=== PATIENT | female | born 1935 | race Caucasian/White ===

== ENCOUNTER → 2018-01-04 19:30 | Outpatient (REF) | payer MEDICARE, SELFPAY | LOC: LAB 19:30 | PROVIDERS: Visit Provider Internal Medicine Adolescent Medicine | DX: N39.0 Urinary tract infection, site not specified (principal) ==

== ENCOUNTER → 2018-01-06 08:50 | Outpatient (REF) | payer MEDICARE, MEDICAID, SELFPAY ==
[2018-01-06 09:11] LABS: Microscopic, Urine URINE MICROSCOPIC (MICROSCOPIC)
[2018-01-06 10:06] LABS: Appearance,Urine SL CLOUDY (Clear); Bilirubin,Urine Negative (Negative); Blood, Urine 2+ (Negative); Color,Urine YELLOW (Yellow); Glucose,Urine (UA) Negative (Negative); Ketones,Urine Negative (Negative); Leukocyte Esterase,Urine TRACE (Negative); Nitrate,Urine Negative (Negative); PH,Urine 6.5 (5.0-8.5); Protein,Urine TRACE (Negative); Urobilinogen,Urine 0.2 EU/dl (0.2)
[2018-01-06 10:15] LABS: Bacteria,Urine 2+ /lpf; Mucus,Urine Trace /lpf; Squamous Epithelial Cell,Urine Occasional #/hpf (0-5); WBC,Urine 20-50 #/hpf (0-3)
== END ==
LOC: LAB 08:50
PROVIDERS: Visit Provider Nurse Practitioner Family
DX: N39.0 Urinary tract infection, site not specified (principal)
CPT/HCPCS: 81001; 87086

== ENCOUNTER 2018-03-15 02:33 | Inpatient (IN) ==
[2018-03-15 03:08] LABS: Basophils % 0.3 % (0.1-2.0); Eosinophils # 0.1 K/mm3 (0.0-0.4); Eosinophils % 1.4 % (0.1-12.0); Hematocrit 34.3 % (37.0-47.0); Hemoglobin 12.7 g/dL (12.2-16.2); Lymphocytes # 0.3 K/mm3 (0.7-4.5); Lymphocytes % 6.8 K/mm3 (10-50); Mean Corpuscular HGB Conc 36.9 g/dL (31.8-35.4); Mean Corpuscular Hemoglobin 34.4 pg (27.0-31.2); Mean Corpuscular Volume 93.1 fl (81-99); Mean Platelet Volume 6.9 fl (7.4-10.4); Monocytes # 0.1 K/mm3 (0.1-1.0); Monocytes % 1.7 % (1.7-9.3); Neutrophils # 4.1 K/mm3 (1.8-7.8); Neutrophils % 89.8 % (37.0-80.0); Platelet Count 297 K/mm3 (142-424); Red Blood Count 3.68 M/mm3 (4.20-5.40); Red Cell Distribution Width 12.8 % (11.5-17.5); White Blood Count 4.6 K/mm3 (4.8-10.8)
[2018-03-15 03:09] LABS: Microscopic, Urine URINE MICROSCOPIC (MICROSCOPIC)
[2018-03-15 03:11] LABS: Appearance,Urine CLEAR (Clear); Bilirubin,Urine Negative (Negative); Blood, Urine 3+ (Negative); Color,Urine YELLOW (Yellow); Glucose,Urine (UA) Negative (Negative); Ketones,Urine Negative (Negative); Leukocyte Esterase,Urine 2+ (Negative); Protein,Urine Negative (Negative); Specific Gravity, Urine <= 1.005 (1.005-1.030); Urobilinogen,Urine 0.2 EU/dl (0.2)
[2018-03-15 03:16] LABS: Bacteria,Urine 1+ /lpf; RBC,Urine TNTC #/hpf (0-3)
[2018-03-15 03:20] LABS: Albumin Level 3.1 gm/dL (3.4-5.0); Anion Gap 10.9 mEq/L (5-15); Bilirubin,Total 0.6 mg/dL (0.2-1.0); Calcium 8.7 mg/dL (8.5-10.1); Globulin 3.2 gm/dl (1.3-3.2); Potassium 3.9 mmoL/L (3.5-5.1); Total Protein,Serum 6.3 gm/dL (6.4-8.2)
[2018-03-15 03:34] LABS: Creatine Kinase 66 U/L (26-192)
[2018-03-15 04:05] LABS: Anisocytosis 1+; Eosinophils % 1 % (0-3); Lymphocytes % 4 % (10-50); Monocytes % 2 % (2-9); Neutrophils % 93 % (42-76); Stomatocytes 1+; Total Cells Counted 100
--- NOTE | 2018-03-15 04:21 | Emergency Department Note ---
ED Disposition Clinical Impression: Hypoxia Fever Qualifiers: Fever type: unspecified Qualified Code(s): R50.9 - Fever, unspecified UTI (urinary tract infection) Qualifiers: Urinary tract infection type: site unspecified Hematuria presence: without hematuria Qualified Code(s): N39.0 - Urinary tract infection, site not specified Nausea & vomiting Qualifiers: Vomiting type: unspecified Vomiting Intractability: unspecified Qualified Code( s): R11.2 - Nausea with vomiting, unspecified Disposition: Admitted As Inpatient Condition on Discharge: Good Time of Disposition: 04:20 - Critical Care Critical Care Time: No Attestation: On 03/15/18, the high probability of a clinically significant, sudden or life threatening deterioration of the following system(s) required my full and direct attention, intervention and personal management. The time I documented below is in addition to time spent performing reported procedures but includes the following listed in this critical care notation. Total Critical Care Time: 90 Vital system(s) involved:: Respiratory Failure My critical care processes included: Assessment & monitoring of V/S, Initial and Re-exams, Data Review/Interpretation, Coordinating Care, Medication Orders and management, Documentation Medical Decision Making - Medical Records Medical records reviewed: Yes: I reviewed the patient's medical records. - [place] Inquiry Pt receiving controlled substance: No Vital Signs: 03/15/18 02:35 03/15/18 03:25 03/15/18 03:28 Temperature 103.5 F H Temperature Source Rectal Pulse Rate Pulse Rate [Left Radial] 101 H 110 H Respiratory Rate 18 16 Blood Pressure Blood Pressure [Left Arm] 142/52 135/74 Blood Pressure Mean [Left Arm] 82 94 02 Sat by Pulse Oximetry 93 L 96 97 Oxygen Delivery Method Room Air Nasal Cannula Oxygen Flow Rate (LPM) 2 03/15/18 03:30 03/15/18 03:56 03/15/18 04:46 Temperature 101.1 F H Temperature Source Rectal Pulse Rate Pulse Rate [Left Radial] 112 H 109 H 104 H Respiratory Rate 16 15 17 Blood Pressure Blood Pressure [Left Arm] 145/90 139/87 143/93 Blood Pressure Mean [Left Arm] 108 104 109 02 Sat by Pulse Oximetry 99 98 97 Oxygen Delivery Method Nasal Cannula Oxygen Flow Rate (LPM) 2 03/15/18 05:09 Temperature 101.1 F H Temperature Source Rectal Pulse Rate 102 H Pulse Rate [Left Radial] Respiratory Rate 16 Blood Pressure 139/89 Blood Pressure [Left Arm] Blood Pressure Mean [Left Arm] 02 Sat by Pulse Oximetry Oxygen Delivery Method Nasal Cannula Oxygen Flow Rate (LPM) 2 - Lab Data Lab results reviewed: Yes: I reviewed the patient's lab results. Lab Results 03/15/18 02:50: Urine Color Yellow, Urine Appearance Clear, Urine pH 7.0, Ur Specific [place] <= 1.005, Urine Protein Negative, Urine Glucose (UA) Negative, Urine Ketones Negative, Urine Blood 3+, Urine Nitrate Negative, Urine Bilirubin Negative, Urine Urobilinogen 0.2, Ur Leukocyte Esterase 2+ A, Urine RBC Tntc, Urine WBC 5-10, Urine Bacteria 1+ 03/15/18 02:50: WBC 4.6 L, RBC 3.68 L, Hgb 12.7, Hct 34.3 L, MCV 93.1, MCH 34.4 H, MCHC 36.9 H, RDW 12.8, Plt Count 297, MPV 6.9 L, Neut % (Auto) 89.8 H, Lymph % (Auto) 6.8 L, [place] % (Auto) 1.7, Eos % (Auto) 1.4, Baso % (Auto) 0.3, Neut # ( Auto) 4.1, Lymph # (Auto) 0.3 L, [place] # (Auto) 0.1, Eos # (Auto) 0.1, Baso # ( Auto) 0.0, Total Counted 100, Neutrophils % (Manual) 93 H, Lymphocytes % (Manual ) 4 L, Monocytes % (Manual) 2, Eosinophils % (Manual) 1, Platelet Estimate Normal, Anisocytosis 1+, Stomatocytes 1+ 03/15/18 02:50: Sodium 139, Potassium 3.9, Chloride 105, Carbon Dioxide 27, Anion Gap 10.9, BUN 9, Creatinine 0.67, Estimated Creat Clear 41, Estimated GFR 84, Est GFR ( Amer) 102, Glucose 141 H, Calcium 8.7, Total Bilirubin 0.6 , AST 30, ALT 24, Alkaline Phosphatase 85, Total Protein 6.3 L, Albumin 3.1 L, Globulin 3.2, Albumin/Globulin Ratio 1.0 L, Amylase 37, Lipase 96 03/15/18 02:50: Stl Aeromonas (PCR) Not detected, Stl C. cayetanensis PCR Not detected, Stool Rotavirus (PCR) Not detected, Stl Adenov F 40/41 PCR Not detected, Stool Astrovirus (PCR) Not detected, Stool Campylobacter PCR Not detected, Stl C.difficile Tox PCR Not detected, Stool Cryptosporidium PCR Not detected, Stl E.coli Shiga Tox PCR Not detected, Stool E coli O157 PCR Not detected, Stl Enterotoxigenic E PCR Not detected, Stool EPEC (PCR) Not detected , Stool EAEC (PCR) Not detected, Stl E. histolytica PCR Not detected, Stool Giardia Lamblia PCR Not detected, Stool Salmonella PCR Not detected, Stool Sapovirus (PCR) Not detected, Stl P. shigelloides PCR Not detected, Stl Shigella /EIEC PCR Not detected, St Y.enterocolitica PCR Not detected, Stool Vibrio (PCR ) Not detected, Stl Vibrio cholerae PCR Not detected, Stl Norovirus GI/GII PCR Not detected 03/15/18 02:50: Stool Occult Blood Negative 03/15/18 02:50: Total Creatine Kinase 66, CK-MB (CK-2) 1.1, CK-MB (CK-2) Rel Index 1.7, Troponin I < 0.02 03/15/18 02:50: Lactic Acid 3.2 H 03/15/18 02:50: D-Dimer > 5000 H* 03/15/18 02:50: B-Natriuretic Peptide 76 Result diagrams: 03/15/18 02:50 03/15/18 02:50 Orders (Tests/Meds): ED MEDICATIONS Generic Name Dose Route Start Last Admin Trade Name Freq PRN Reason Stop Dose Admin Acetaminophen 650 mg 03/15/18 05:01 Acetaminophen 650mg Suppository RC 04/14/18 04:45 Q6HP PRN Fever > 100.4 Amlodipine Besylate 5 mg 03/15/18 09:00 Norvasc 5mg Tablet PO 04/14/18 08:59 DAILY [facility] Aspirin 162 mg 03/15/18 09:00 Aspirin 81mg Enteric Coated Tablet PO 04/14/18 08:59 DAILY [facility] Atorvastatin Calcium 40 mg 03/15/18 09:00 Lipitor 40mg Tablet PO 04/14/18 08:59 DAILY [facility] Citalopram Hydrobromide 10 mg 03/15/18 09:00 Celexa 10mg Tablet PO 04/14/18 08:59 DAILY [facility] Guaifenesin 5 mg 03/15/18 05:01 Robitussin 200mg/10ml Syrup Udc PO 04/14/18 05:00 Q8H PRN Cough Sodium Chloride 1,000 mls @ 75 mls/hr 03/15/18 05:01 Sod Chlor 0.9% 1000ml Bag IV 04/14/18 04:59 .[id number] [facility] Sodium Chloride 1,000 mls @ 75 mls/hr 03/15/18 05:01 Sod Chlor 0.9% 1000ml Bag IV 03/15/18 18:20 .[id number] [facility] Iopamidol 75 ml 03/15/18 05:33 03/15/18 05:37 [id number]; 75ml Vial IV 03/15/18 05:34 75 ml ONCE ONE Administration Levothyroxine Sodium 150 mcg 03/15/18 09:00 Synthroid 125mcg (0.125mg) Tablet PO 04/14/18 08:59 DAILY [facility] Loperamide HCl 3 mg 03/15/18 09:00 Imodium Liquid 1mg/5ml 120ml Bottle PO 04/14/18 08:59 BID [facility] Loperamide HCl 2 mg 03/15/18 05:01 Imodium 2 Mg Capsule PO 04/14/18 05:00 DAILY PRN Diarrhea Lorazepam 0.5 mg 03/15/18 05:01 Ativan 0.5mg Tablet PO 04/14/18 05:00 TID PRN Anxiety Miscellaneous 1 each 03/15/18 05:01 Vancomycin Consult Request * 04/14/18 03:44 CONSULT PHARMACY [facility] Non-Formulary Medication 1,000 mg 03/15/18 05:01 Acetaminophen PO Q6H PRN pain Non-Formulary Medication 1 each 03/15/18 09:00 Calcium Carbonate/Vitamin D3 [Calcium 600-Vit D3 200 Tablet] PO 04/14/18 08: 59 DAILY [facility] Non-Formulary Medication 2,000 unit 03/15/18 09:00 Cholecalciferol (Vitamin D3) [Vitamin D3] PO 04/14/18 08:59 DAILY [facility] Non-Formulary Medication 28 mg 03/15/18 09:00 Memantine Hcl [Namenda Xr] PO 04/14/18 08:59 DAILY [facility] Non-Formulary Medication 1 gm 03/15/18 09:00 Methenamine Hippurate [Methenamine Hippurate] PO 04/14/18 08:59 DAILY [facility] Non-Formulary Medication 1 tab 03/15/18 09:00 Multivitamin With Minerals [One Daily Plus Minerals] PO 04/14/18 08:59 DAILY [facility] Non-Formulary Medication 50 mg 03/15/18 05:01 Trazodone Hcl [Trazodone Hcl] PO QHS PRN Sleep Non-Formulary Medication 5 mg 03/15/18 09:00 Levocetirizine Dihydrochloride [Levocetirizine Dihydrochloride] PO 04/14/18 08:59 DAILY [facility] Non-Formulary Medication 500 mg 03/15/18 09:00 Methylcellulose [Citrucel] PO 04/14/18 08:59 BID [facility] Primidone 50 mg 03/15/18 09:00 Mysoline 50mg Tablet PO 04/14/18 08:59 DAILY [facility] Primidone 250 mg 03/15/18 05:01 Mysoline 50mg Tablet PO 04/14/18 05:00 QHS [facility] Propranolol HCl 20 mg 03/15/18 09:00 Inderal 20mg Tablet PO 04/14/18 08:59 TID [facility] Rivastigmine each 03/15/18 09:00 Exelon 4.6mg/24hr Patch TD 04/14/18 08:59 DAILY [facility] Sodium Chloride 10 ml 03/15/18 05:01 Saline Flush 10ml Syringe IV 04/14/18 04:48 NEEDED PRN Maintain IV Site Sodium Chloride 50 ml 03/15/18 05:33 03/15/18 05:36 Rad-Ns 50ml Vial IV 03/15/18 05:34 50 ml ONCE ONE Administration Sodium Chloride 10 ml 03/15/18 05:33 03/15/18 05:36 Rad-Saline Flush 10ml Syringe IV 03/15/18 05:34 10 ml ONCE ONE Administration Discontinued Medications Generic Name Dose Route Start Last Admin Trade Name Freq PRN Reason Stop Dose Admin Acetaminophen 1,000 mg 03/15/18 02:43 03/15/18 03:31 Tylenol 500mg Tablet PO 03/15/18 02:44 Not Given ONCE ONE Acetaminophen 650 mg 03/15/18 04:46 03/15/18 04:47 Acetaminophen 650mg Suppository RC 04/14/18 04:45 650 mg Q6HP PRN Administration Fever > 100.4 Enoxaparin Sodium 60 mg 03/15/18 04:37 03/15/18 04:47 Lovenox 60mg/0.6ml Syringe SQ 03/15/18 04:38 60 mg ONCE ONE Administration Sodium Chloride 1,000 mls @ 999 mls/hr 03/15/18 02:45 03/15/18 03:31 Sod Chlor 0.9% 1000ml Bag IV 03/15/18 03:45 999 mls/hr .Q1H1M [facility] Administration Meropenem 1 gm/ Sodium 100 mls @ 100 mls/hr 03/15/18 03:30 03/15/18 03:32 Chloride IV 03/29/18 03:29 Not Given Q8H [facility] Protocol Vancomycin HCl 1,000 mg/ 250 mls @ 125 mls/hr 03/15/18 03:43 03/15/18 03:52 Sodium Chloride IV 03/15/18 03:44 125 mls/hr ONCE ONE Administration Protocol Vancomycin HCl 1,000 mg/ 250 mls @ 125 mls/hr 03/15/18 03:44 Sodium Chloride IV 03/15/18 03:45 ONCE ONE Protocol Sodium Chloride 1,000 mls @ 999 mls/hr 03/15/18 04:45 03/15/18 04:32 Sod Chlor 0.9% 1000ml Bag IV 03/15/18 05:45 999 mls/hr .Q1H1M [facility] Administration Sodium Chloride 1,000 mls @ 500 mls/hr 03/15/18 04:45 Sod Chlor 0.9% 1000ml Bag IV 04/14/18 04:44 .Q2H [facility] Sodium Chloride 1,000 mls @ 75 mls/hr 03/15/18 05:00 Sod Chlor 0.9% 1000ml Bag IV 04/14/18 04:59 .[id number] [facility] Ibuprofen 600 mg 03/15/18 02:43 03/15/18 03:31 Motrin 600mg Tablet PO 03/15/18 02:44 Not Given ONCE ONE Ketorolac Tromethamine 30 mg 03/15/18 02:39 03/15/18 03:30 Toradol 30mg/Ml Vial IV 03/15/18 02:40 30 mg ONCE ONE Administration Miscellaneous 1 each 03/15/18 03:45 03/15/18 03:51 Vancomycin Consult Request * 04/14/18 03:44 1 each CONSULT PHARMACY [facility] Administration Ondansetron HCl 8 mg 03/15/18 02:39 03/15/18 03:31 Zofran 4mg/2ml Vial IV 03/15/18 02:40 8 mg ONCE ONE Administration Sodium Chloride 10 ml 03/15/18 04:49 Saline Flush 10ml Syringe IV 04/14/18 04:48 NEEDED PRN Maintain IV Site ORDERS Category Date Time Status CT Chest w/PE protocol [CT angio chest] Stat Cat Scan 03/15/18 03:54 Taken Chest XR -- portable [XR chest portable] Stat Exams 03/15/18 02:43 Taken Cardiac Enzymes Timed Lab 03/15/18 06:00 Ordered Cardiac Enzymes Timed Lab 03/15/18 11:59 Ordered Occult Blood,Stool Stat Lab 03/15/18 03:20 Stop Req Blood Culture Stat Micro 03/15/18 02:50 Stop Req Urine Culture Stat Micro 03/15/18 02:50 Stop Req - Radiology Data #1 Image(s): Chest Image Reviewed: Yes I reviewed the patient's radiology image Preliminary Findings: Normal/NAD - CT Data CT Scan: Chest Time Received: 06:11 Findings Narrative: RLL infiltrate, no PE, read by myself, VRad interpretation pending - ECG Data Tracing #1 I reviewed this ECG and interpreted as documented below: sinus tachycardia, no acute ischemia, no ectopies ECG normal with no acute: arrhythmias, ischemia, conduction abnormalities, chamber hypertrophy Arrhythmias present: sinus tach (heart rate 132) - Physician Consults Physician Consulted: Dr King covering for Dr Irvin Time: 04:20 Reason -: Admission, Pt condition Comment/Response: Advise of patient presentation findings, agreeable with admission, agreeable with stress of antibiotics,, as well as workup. Nausea/Vomiting/Diarrhea HPI - General Chief complaint: Nausea/Vomiting/Diarrhea Stated complaint: Low O2 sat Time Seen by Provider: 03/15/18 02:45 Mode of Arrival: EMS Source of Information: Patient Limitations: No Limitations Description of Symptoms (Recalled from ER Triage Doc. by RN): Pt had been vomitting bile tonight and had O2 sat of 84%. - History of Present Illness HPI Narrative: This is a 83-year-old female patient brought to the emergency room after being found by nursing staff at the [facility] with low oxygen saturations, having episode of nausea and vomiting. Patient was transported by EMS to our emergency room department, where her pulse ox was found to be 88% on room air, and having a fever of 103.7 rectally. Patient also found to have profuse diarrhea, foul smelling. Daughter stated that she is just finished a course of antibiotics for urinary tract infection. MD complaint: nausea, vomiting Onset (ago): hour(s) (/2) Description of Vomiting: food contents Description of Diarrhea: water Associated Abdominal Pain: No Severity: mild Severity scale (1-10): 2 Quality: cramping Consistency: intermittent Associated symptoms: denies other symptoms - Related Data Home Medications Medication Instructions Recorded Confirmed acetaminophen 500 mg capsule 1,000 mg PO Q6H PRN 10/25/17 03/15/18 aspirin 81 mg tablet,delayed 162 mg PO DAILY tab 10/25/17 03/15/18 release atorvastatin 40 mg tablet 40 mg PO DAILY tab 10/25/17 03/15/18 cholecalciferol (vitamin D3) 2,000 2,000 unit PO DAILY cap 10/25/17 03/15/18 unit capsule levothyroxine 125 mcg tablet 150 mcg PO DAILY tab 10/25/17 03/15/18 loperamide 1 mg/5 mL oral liquid 15 ml PO BID ml 10/25/17 03/15/18 loperamide 2 mg capsule 2 mg PO DAILY PRN cap 10/25/17 03/15/18 lorazepam 0.5 mg tablet 0.5 mg PO TID PRN tab 10/25/17 03/15/18 primidone 50 mg tablet 250 mg PO QHS 10/25/17 03/15/18 trazodone 100 mg tablet 50 mg PO QHS PRN 10/25/17 03/15/18 Amlodipine Besylate [Norvasc 5mg 5 mg PO DAILY 03/15/18 03/15/18 tablet] Calcium Carbonate/Vitamin D3 1 each PO DAILY 03/15/18 03/15/18 [Calcium 600-Vit D3 200 Tablet] Citalopram Hydrobromide [Celexa 10 mg PO DAILY 03/15/18 03/15/18 10mg Tablet] Levocetirizine Dihydrochloride 5 mg PO DAILY 03/15/18 03/15/18 Memantine HCl [Namenda Xr] 28 mg PO DAILY 03/15/18 03/15/18 Methenamine Hippurate 1 gm PO DAILY 03/15/18 03/15/18 Methylcellulose [Citrucel] 500 mg PO BID 03/15/18 03/15/18 Multivitamin with Minerals [One 1 tab PO DAILY 03/15/18 03/15/18 Daily Plus Minerals] Primidone [Mysoline] 50 mg PO DAILY 03/15/18 03/15/18 Propranolol HCl [Inderal 20mg 20 mg PO TID 03/15/18 03/15/18 tablet] Rivastigmine [Exelon] 13.3 mg TD DAILY 03/15/18 03/15/18 guaiFENesin [Robafen] 5 mg PO Q8H PRN 03/15/18 03/15/18 Allergies Allergy/AdvReac Type Severity Reaction Status Date / Time amoxicillin [From AMOXIL] Allergy Mild ITCHING Verified 03/15/18 02:43 levofloxacin [From LEVAQUIN] Allergy Mild I-RASH Verified 03/15/18 02:43 nitrofurantoin Allergy Mild rash Verified 03/15/18 02:43 [From MACROBID] [facility] History I have reviewed the patient's past medical history: Yes Medical History: Denies:: Cancer, Diabetes Mellitus Type 1, Diabetes Mellitus Type 2, MRSA Amputation: No - Social History Smoking Status: Former smoker Alcohol Intake: never - Psychiatric History Expresses thoughts of harming self/others: None Suicide Plan Description: No Plan ROS Obtained: Yes All systems reviewed & no additional complaints, Yes Systems reviewed as appropriate & no additional complaints - Constitutional Constitutional: Reports chills, Reports fatigue, Reports fever(s) - Respiratory Respiratory: Yes system reviewed and no additional complaints, except as docu, Yes as per HPI, Yes dyspnea - Gastrointestinal Gastrointestingal: Reports: system reviewed and no additional complaints, except as docu, nausea, vomiting Physical Exam - General General appearance: alert, in distress (moderate) - Head Head exam: atraumatic, normocephalic, normal inspection - Neck Neck exam: Present: normal inspection, full ROM, trachea midline. Absent: meningismus, lymphadenopathy - Chest Chest inspection: Present: normal inspection, symmetric chest wall rise. Absent : tenderness - Respiratory Respiratory exam: Present: normal lung sounds bilaterally. Absent: respiratory distress - Cardiovascular Cardiovascular exam: Present: tachycardia. Absent: JVD - Abdominal Exam Abdominal exam: Present: soft, normal bowel sounds. Absent: distention, tenderness, guarding - Extremities Exam Extremities exam: Present: normal inspection, normal capillary refill. Absent: tenderness, pedal edema, joint swelling, calf tenderness - Back Exam Back exam: Present: normal inspection. Absent: tenderness - Neurological Exam Neurological exam: Present: alert, oriented X3, motor sensory deficit (right sided weakness) - Psychiatric Psychiatric exam: Present: depressed, flat affect - Skin Skin exam: Present: warm, dry, intact, normal color
[2018-03-15 07:26] LABS: Creatine Kinase 46 U/L (26-192)
--- NOTE | 2018-03-15 07:26 | Pharmacy Consult Notes ---
[facility] Pharmacy VTE Monitoring - Patient Demographics Admission date: 03/15/18 Report Date: 03/15/18 Time: 07:26 Allergies/Adverse Reactions: Patient Allergies amoxicillin [From AMOXIL] Allergy (Mild, Verified 03/15/18 02:43) ITCHING levofloxacin [From LEVAQUIN] Allergy (Mild, Verified 03/15/18 02:43) I-RASH nitrofurantoin [From MACROBID] Allergy (Mild, Verified 03/15/18 02:43) rash Height: 1.68 m Weight: 56.019 kg Patient Problems: Current Active Problems Fever (Acute) UTI (urinary tract infection) (Acute) Hypoxia (Acute) Nausea & vomiting (Acute) - VTE Risk Labs: VTE Related Lab Results Hgb 12.7 g/dL (12.2-16.2) 03/15/18 02:50 Hct 34.3 % (37.0-47.0) L 03/15/18 02:50 Plt Count 297 K/mm3 (142-424) 03/15/18 02:50 BUN 9 mg/dL (7-18) 03/15/18 02:50 Creatinine 0.67 mg/dL (0.55-1.02) 03/15/18 02:50 Estimated Creat Clear 41 mL/min (0-300) 03/15/18 02:50 Was VTE Risk Assessment Performed: Yes VTE Score: 5 VTE Risk Level: Low Risk - Prophylaxis VTE Prophylaxis Ordered?: Yes Types of VTE Prophylaxis: TEDS Knee High Location of Applied Device: Bilateral Lower Extremeties - VTE Diagnosis Confirmed Treatment or plan recommended: Continue Current Treatment
--- NOTE | 2018-03-15 08:20 | History & Physical Report ---
*Admission Date: 03/15/18 *Chief complaint: Nausea/vomiting, Fever, Altered mental status *History of present illness: Ms. Hayes is an 83-year-old female who presents with 2-3 days of worsening fever, Nausea, vomiting. Found last night at her Assisted living facility having vomited with low O2 sats. Daughter at bedside providing history. Reports her mother has a history of urinary tract infections and was currently being worked up for urinary tract infection at her assisted living home. They were awaiting cultures when condition declined. She states her mentation is not at baseline she is more agitated and irritable than normal. Additionally she has been having increased loose stools. On admission in the ER patient was febrile greater than 102, tachycardic greater than 100, and had suspected source of urinary tract infection. Admitted to overnight for sepsis due to urinary tract infection. Daughter denies any new rashes, cough. [facility] History Medical History: Reports:: Hyperlipidemia, Hypertension, Myocardial Infarction Denies:: Cancer, Diabetes Mellitus Type 1, Diabetes Mellitus Type 2, MRSA Other Medical History: Reports: Anemia, Arthritis, Cataracts, Hypothyroidism Laterality Cases: Bilateral: Cataract Other Surgeries: Yes: Cholecystectomy Amputation: No - *Social History Smoking Status: Former smoker Alcohol Intake: never Occupational Status: disabled Housing: group home Comment: Alzheimer, Assisted living facility - Psychiatric History Expresses thoughts of harming self/others: None Suicide Plan Description: No Plan *Family Hx:: Cancer, Heart Attack, Hyperlipidemia, Hypertension, Thyroid Disorder Review of Systems - Review of Systems Review of systems:: pertinent systems reviewed and negative unless documented below Obtained ROS from Daughter, [facility] Medications Medication Instructions Recorded Confirmed Type acetaminophen 500 mg capsule 1,000 mg PO Q6HP PRN 10/25/17 03/15/18 History atorvastatin 40 mg tablet 40 mg PO HS tab 10/25/17 03/15/18 History cholecalciferol (vitamin D3) 2,000 2,000 unit PO DAILY cap 10/25/17 03/15/18 History unit capsule loperamide 1 mg/5 mL oral liquid 15 ml PO BID ml 10/25/17 03/15/18 History loperamide 2 mg capsule 2 mg PO DAILY PRN cap 10/25/17 03/15/18 History lorazepam 0.5 mg tablet 0.5 mg PO TID PRN tab 10/25/17 03/15/18 History primidone 50 mg tablet 250 mg PO QHS 10/25/17 03/15/18 History trazodone 100 mg tablet 50 mg PO HS 10/25/17 03/15/18 History Amlodipine Besylate [Norvasc 5mg 5 mg PO DAILY 03/15/18 03/15/18 History tablet] Aspirin [Aspirin 81mg chewable 81 mg PO DAILY 03/15/18 03/15/18 History tab] Calcium Carbonate/Vitamin D3 1 each PO DAILY 03/15/18 03/15/18 History [Calcium 600-Vit D3 200 Tablet] Citalopram Hydrobromide [Celexa 10 mg PO HS 03/15/18 03/15/18 History 10mg Tablet] Levocetirizine Dihydrochloride 5 mg PO DAILY 03/15/18 03/15/18 History Levothyroxine Sodium 150 mcg PO DAILY 03/15/18 03/15/18 History [Levothyroxine 150mcg (0.15mg) Tab] Memantine HCl [Namenda Xr] 28 mg PO DAILY 03/15/18 03/15/18 History Methenamine Hippurate 1 gm PO DAILY 03/15/18 03/15/18 History Methylcellulose [Citrucel] 500 mg PO BID 03/15/18 03/15/18 History Multivitamin with Minerals [One 1 tab PO DAILY 03/15/18 03/15/18 History Daily Plus Minerals] Primidone [Mysoline] 50 mg PO DAILY 03/15/18 03/15/18 History Propranolol HCl [Inderal 20mg 20 mg PO TID 03/15/18 03/15/18 History tablet] Rivastigmine [Exelon] 13.3 mg TD DAILY 03/15/18 03/15/18 History guaiFENesin [Robafen] 5 ml PO Q8HP PRN 03/15/18 03/15/18 History Allergies Allergy/AdvReac Type Severity Reaction Status Date / Time amoxicillin [From AMOXIL] Allergy Mild ITCHING Verified 03/15/18 02:43 levofloxacin [From LEVAQUIN] Allergy Mild I-RASH Verified 03/15/18 02:43 nitrofurantoin Allergy Mild rash Verified 03/15/18 02:43 [From MACROBID] Exam Vital signs and Labs for Last 24 Hours: Temp Pulse Resp BP Pulse Ox 98.2 F 103 H 22 108/50 90 L 03/15/18 07:44 03/15/18 07:44 03/15/18 07:44 03/15/18 07:44 03/15/18 07:44 Laboratory Results - last 24 hr 03/15/18 02:50: Urine Color Yellow, Urine Appearance Clear, Urine pH 7.0, Ur Specific [place] <= 1.005, Urine Protein Negative, Urine Glucose (UA) Negative, Urine Ketones Negative, Urine Blood 3+, Urine Nitrate Negative, Urine Bilirubin Negative, Urine Urobilinogen 0.2, Ur Leukocyte Esterase 2+ A, Urine RBC Tntc, Urine WBC 5-10, Urine Bacteria 1+ 03/15/18 02:50: WBC 4.6 L, RBC 3.68 L, Hgb 12.7, Hct 34.3 L, MCV 93.1, MCH 34.4 H, MCHC 36.9 H, RDW 12.8, Plt Count 297, MPV 6.9 L, Neut % (Auto) 89.8 H, Lymph % (Auto) 6.8 L, [place] % (Auto) 1.7, Eos % (Auto) 1.4, Baso % (Auto) 0.3, Neut # ( Auto) 4.1, Lymph # (Auto) 0.3 L, [place] # (Auto) 0.1, Eos # (Auto) 0.1, Baso # ( Auto) 0.0, Total Counted 100, Neutrophils % (Manual) 93 H, Lymphocytes % (Manual ) 4 L, Monocytes % (Manual) 2, Eosinophils % (Manual) 1, Platelet Estimate Normal, Anisocytosis 1+, Stomatocytes 1+ 03/15/18 02:50: Sodium 139, Potassium 3.9, Chloride 105, Carbon Dioxide 27, Anion Gap 10.9, BUN 9, Creatinine 0.67, Estimated Creat Clear 41, Estimated GFR 84, Est GFR ( Amer) 102, Glucose 141 H, Calcium 8.7, Total Bilirubin 0.6 , AST 30, ALT 24, Alkaline Phosphatase 85, Total Protein 6.3 L, Albumin 3.1 L, Globulin 3.2, Albumin/Globulin Ratio 1.0 L, Amylase 37, Lipase 96 03/15/18 02:50: Stl Aeromonas (PCR) Not detected, Stl C. cayetanensis PCR Not detected, Stool Rotavirus (PCR) Not detected, Stl Adenov F 40/41 PCR Not detected, Stool Astrovirus (PCR) Not detected, Stool Campylobacter PCR Not detected, Stl C.difficile Tox PCR Not detected, Stool Cryptosporidium PCR Not detected, Stl E.coli Shiga Tox PCR Not detected, Stool E coli O157 PCR Not detected, Stl Enterotoxigenic E PCR Not detected, Stool EPEC (PCR) Not detected , Stool EAEC (PCR) Not detected, Stl E. histolytica PCR Not detected, Stool Giardia Lamblia PCR Not detected, Stool Salmonella PCR Not detected, Stool Sapovirus (PCR) Not detected, Stl P. shigelloides PCR Not detected, Stl Shigella /EIEC PCR Not detected, St Y.enterocolitica PCR Not detected, Stool Vibrio (PCR ) Not detected, Stl Vibrio cholerae PCR Not detected, Stl Norovirus GI/GII PCR Not detected 03/15/18 02:50: Stool Occult Blood Negative 03/15/18 02:50: Total Creatine Kinase 66, CK-MB (CK-2) 1.1, CK-MB (CK-2) Rel Index 1.7, Troponin I < 0.02 03/15/18 02:50: Lactic Acid 3.2 H 03/15/18 02:50: D-Dimer > 5000 H* 03/15/18 02:50: B-Natriuretic Peptide 76 03/15/18 06:10: Total Creatine Kinase 46, CK-MB (CK-2) 0.8 D, CK-MB (CK-2) Rel Index 1.7, Troponin I < 0.02 03/15/18 07:20: Lactic Acid Fup @ 4Hr 1.5 I & O for Last 24 hours: Intake & Output 03/12/18 03/13/18 03/14/18 03/15/18 11:59 11:59 11:59 11:59 Intake Total 2360 / 2360 Balance 2360 / 2360 Weight 123 lb 8 oz - *Routine HEENT Exam Head: Present: atraumatic Eye: Present: EOMI, PERRL. Absent: conjunctival icterus, periorbital ecchymosis Comments: Bitemporal wasting - *Routine Neck Exam Present: supple, full ROM. Absent: JVD, thyromegaly - *Routine Respiratory Exam Present: CTA bilaterally. Absent: accessory muscle use, rales, respiratory distress, rhonchi, wheezes, crackles - *Routine Cardiovascular Exam Present: Normal S1, Normal S2. Absent: murmur Comments: Tachycardic, regular rhythm - *Routine Abdominal Exam Present: soft, normoactive bowel sounds, tenderness (Suprapubic tenderness). Absent: distended, rebound, mass - *Routine Rectal Exam Patient deferred: visual exam - *Routine Exam Comments: Urinary catheter in place - *Routine Extremities Exam Absent: cyanosis, clubbing, edema - *Routine Skin Exam Present: intact. Absent: cyanosis, erythema, petechiae - *Routine Neurological Exam Present: alert, tremors Oriented to person; disoriented to place, time, sedation; lateral tremor in hands, no focal deficits - Routine Psychiatric Exam Present: cooperative, anxious Comments: Patient is confused to those around her, asks repeated questions due to her Alzheimer's. More anxious compared to baseline per daughter H&P: Result - Labs Labs: Short CBC 03/15/18 Range/Units 02:50 WBC 4.6 L (4.8-10.8) K/mm3 Hgb 12.7 (12.2-16.2) g/dL Hct 34.3 L (37.0-47.0) % Plt Count 297 (142-424) K/mm3 BMP 03/15/18 02:50 Sodium 139 Potassium 3.9 Chloride 105 Carbon Dioxide 27 BUN 9 Creatinine 0.67 Glucose 141 H Calcium 8.7 Cardiac Enzymes 03/15/18 03/15/18 Range/Units 02:50 06:10 Total Creatine Kinase 66 46 (26-192) U/L CK-MB (CK-2) 1.1 0.8 D (0.0-3.6) ng/ml Troponin I < 0.02 < 0.02 (0.00-0.06) ng/ml Liver Function 03/15/18 Range/Units 02:50 Total Bilirubin 0.6 (0.2-1.0) mg/dL AST 30 (15-37) U/L ALT 24 (12-78) U/L Alkaline Phosphatase 85 (46-116) U/L Albumin 3.1 L (3.4-5.0) gm/dL Urine 03/15/18 Range/Units 02:50 Urine Color Yellow (Yellow) Urine Appearance Clear (Clear) Urine pH 7.0 (5.0-8.5) Ur Specific [place] <= 1.005 (1.005-1.030) Urine Protein Negative (Negative) Urine Glucose (UA) Negative (Negative) Laboratory Tests 03/15/18 03/15/18 02:50 07:20 Lactic Acid 3.2 H Lactic Acid Fup @ 4Hr 1.5 Assessment and Plan (1) Sepsis Start date: 03/15/18 Current visit: Yes Status: Acute Qualifiers: Sepsis type: sepsis due to unspecified organism Qualified Code(s): A41.9 - Sepsis, unspecified organism Category: Medical Code(s): A41.9 - Sepsis, unspecified organism Patient meeting septic criteria with fever, tachycardia greater than 90, source with UTI on admission, defervesced overnight afebrile this morning Antibiotics initiated on admission, received 1 dose of vancomycin, continue aztreonam for urinary source coverage based on patient allergies Continue IV fluids Urine culture obtained, pending Blood culture 2 obtained, pending Repeat lactate improved less than 2 (2) Fever Current visit: Yes Status: Acute Qualifiers: Fever type: unspecified Qualified Code(s): R50.9 - Fever, unspecified Category: Medical Code(s): R50.9 - Fever, unspecified (3) UTI (urinary tract infection) Current visit: Yes Status: Acute Qualifiers: Urinary tract infection type: site unspecified Hematuria presence: without hematuria Qualified Code(s): N39.0 - Urinary tract infection, site not specified Category: Medical Code(s): N39.0 - Urinary tract infection, site not specified (4) Alzheimer's dementia Current visit: Yes Status: Acute Category: Medical Code(s): G30.9 - Alzheimer's disease, unspecified; F02.80 - Dementia in other diseases classified elsewhere without behavioral disturbance Present on admission Continue home medications Complicates aspects of care (5) Hypertension Current visit: Yes Status: Acute Category: Medical Code(s): I10 - Essential (primary) hypertension Present on admission Currently normotensive Continue home medications
--- NOTE | 2018-03-15 10:00 | Pharmacy Consult Notes ---
- Pharmacy Consult Date: 03/15/18 Time: 09:59 Referring provider: DR. GILBERT Reason for Consult:: VANCOMYCIN DOSING Allergies and ADEs:: Allergies Allergy/AdvReac Type Severity Reaction Status Date / Time amoxicillin [From AMOXIL] Allergy Mild ITCHING Verified 03/15/18 02:43 levofloxacin [From LEVAQUIN] Allergy Mild I-RASH Verified 03/15/18 02:43 nitrofurantoin Allergy Mild rash Verified 03/15/18 02:43 [From MACROBID] Home Medications:: Home Medications Medication Instructions Recorded Confirmed Type acetaminophen 500 mg capsule 1,000 mg PO Q6HP PRN 10/25/17 03/15/18 History atorvastatin 40 mg tablet 40 mg PO HS tab 10/25/17 03/15/18 History cholecalciferol (vitamin D3) 2,000 2,000 unit PO DAILY cap 10/25/17 03/15/18 History unit capsule loperamide 1 mg/5 mL oral liquid 15 ml PO BID ml 10/25/17 03/15/18 History loperamide 2 mg capsule 2 mg PO DAILY PRN cap 10/25/17 03/15/18 History lorazepam 0.5 mg tablet 0.5 mg PO TID PRN tab 10/25/17 03/15/18 History primidone 50 mg tablet 250 mg PO QHS 10/25/17 03/15/18 History trazodone 100 mg tablet 50 mg PO HS 10/25/17 03/15/18 History Amlodipine Besylate [Norvasc 5mg 5 mg PO DAILY 03/15/18 03/15/18 History tablet] Aspirin [Aspirin 81mg chewable 81 mg PO DAILY 03/15/18 03/15/18 History tab] Calcium Carbonate/Vitamin D3 1 each PO DAILY 03/15/18 03/15/18 History [Calcium 600-Vit D3 200 Tablet] Citalopram Hydrobromide [Celexa 10 mg PO HS 03/15/18 03/15/18 History 10mg Tablet] Levocetirizine Dihydrochloride 5 mg PO DAILY 03/15/18 03/15/18 History Levothyroxine Sodium 150 mcg PO DAILY 03/15/18 03/15/18 History [Levothyroxine 150mcg (0.15mg) Tab] Memantine HCl [Namenda Xr] 28 mg PO DAILY 03/15/18 03/15/18 History Methenamine Hippurate 1 gm PO DAILY 03/15/18 03/15/18 History Methylcellulose [Citrucel] 500 mg PO BID 03/15/18 03/15/18 History Multivitamin with Minerals [One 1 tab PO DAILY 03/15/18 03/15/18 History Daily Plus Minerals] Primidone [Mysoline] 50 mg PO DAILY 03/15/18 03/15/18 History Propranolol HCl [Inderal 20mg 20 mg PO TID 03/15/18 03/15/18 History tablet] Rivastigmine [Exelon] 13.3 mg TD DAILY 03/15/18 03/15/18 History guaiFENesin [Robafen] 5 ml PO Q8HP PRN 03/15/18 03/15/18 History Height: 1.68 m Weight: 56.019 kg Laboratory Results:: Laboratory Results - last 24 hr 03/15/18 02:50: Urine Color Yellow, Urine Appearance Clear, Urine pH 7.0, Ur Specific [place] <= 1.005, Urine Protein Negative, Urine Glucose (UA) Negative, Urine Ketones Negative, Urine Blood 3+, Urine Nitrate Negative, Urine Bilirubin Negative, Urine Urobilinogen 0.2, Ur Leukocyte Esterase 2+ A, Urine RBC Tntc, Urine WBC 5-10, Urine Bacteria 1+ 03/15/18 02:50: WBC 4.6 L, RBC 3.68 L, Hgb 12.7, Hct 34.3 L, MCV 93.1, MCH 34.4 H, MCHC 36.9 H, RDW 12.8, Plt Count 297, MPV 6.9 L, Neut % (Auto) 89.8 H, Lymph % (Auto) 6.8 L, [place] % (Auto) 1.7, Eos % (Auto) 1.4, Baso % (Auto) 0.3, Neut # ( Auto) 4.1, Lymph # (Auto) 0.3 L, [place] # (Auto) 0.1, Eos # (Auto) 0.1, Baso # ( Auto) 0.0, Total Counted 100, Neutrophils % (Manual) 93 H, Lymphocytes % (Manual ) 4 L, Monocytes % (Manual) 2, Eosinophils % (Manual) 1, Platelet Estimate Normal, Anisocytosis 1+, Stomatocytes 1+ 03/15/18 02:50: Sodium 139, Potassium 3.9, Chloride 105, Carbon Dioxide 27, Anion Gap 10.9, BUN 9, Creatinine 0.67, Estimated Creat Clear 41, Estimated GFR 84, Est GFR ( Amer) 102, Glucose 141 H, Calcium 8.7, Total Bilirubin 0.6 , AST 30, ALT 24, Alkaline Phosphatase 85, Total Protein 6.3 L, Albumin 3.1 L, Globulin 3.2, Albumin/Globulin Ratio 1.0 L, Amylase 37, Lipase 96 03/15/18 02:50: Stl Aeromonas (PCR) Not detected, Stl C. cayetanensis PCR Not detected, Stool Rotavirus (PCR) Not detected, Stl Adenov F 40/41 PCR Not detected, Stool Astrovirus (PCR) Not detected, Stool Campylobacter PCR Not detected, Stl C.difficile Tox PCR Not detected, Stool Cryptosporidium PCR Not detected, Stl E.coli Shiga Tox PCR Not detected, Stool E coli O157 PCR Not detected, Stl Enterotoxigenic E PCR Not detected, Stool EPEC (PCR) Not detected , Stool EAEC (PCR) Not detected, Stl E. histolytica PCR Not detected, Stool Giardia Lamblia PCR Not detected, Stool Salmonella PCR Not detected, Stool Sapovirus (PCR) Not detected, Stl P. shigelloides PCR Not detected, Stl Shigella /EIEC PCR Not detected, St Y.enterocolitica PCR Not detected, Stool Vibrio (PCR ) Not detected, Stl Vibrio cholerae PCR Not detected, Stl Norovirus GI/GII PCR Not detected 03/15/18 02:50: Stool Occult Blood Negative 03/15/18 02:50: Total Creatine Kinase 66, CK-MB (CK-2) 1.1, CK-MB (CK-2) Rel Index 1.7, Troponin I < 0.02 03/15/18 02:50: Lactic Acid 3.2 H 03/15/18 02:50: D-Dimer > 5000 H* 03/15/18 02:50: B-Natriuretic Peptide 76 03/15/18 06:10: Total Creatine Kinase 46, CK-MB (CK-2) 0.8 D, CK-MB (CK-2) Rel Index 1.7, Troponin I < 0.02 03/15/18 07:20: Lactic Acid Fup @ 4Hr 1.5 Medical History: Reports:: Hyperlipidemia, Hypertension, Myocardial Infarction Denies:: Cancer, Diabetes Mellitus Type 1, Diabetes Mellitus Type 2, MRSA Assessment and Plan (1) Sepsis Start date: 03/15/18 Current visit: Yes Status: Acute Qualifiers: Sepsis type: sepsis due to unspecified organism Qualified Code(s): A41.9 - Sepsis, unspecified organism Category: Medical Code(s): A41.9 - Sepsis, unspecified organism (2) Fever Current visit: Yes Status: Acute Qualifiers: Fever type: unspecified Qualified Code(s): R50.9 - Fever, unspecified Category: Medical Code(s): R50.9 - Fever, unspecified (3) UTI (urinary tract infection) Current visit: Yes Status: Acute Qualifiers: Urinary tract infection type: site unspecified Hematuria presence: without hematuria Qualified Code(s): N39.0 - Urinary tract infection, site not specified Category: Medical Code(s): N39.0 - Urinary tract infection, site not specified (4) Alzheimer's dementia Current visit: Yes Status: Acute Category: Medical Code(s): G30.9 - Alzheimer's disease, unspecified; F02.80 - Dementia in other diseases classified elsewhere without behavioral disturbance (5) Hypertension Current visit: Yes Status: Acute Category: Medical Code(s): I10 - Essential (primary) hypertension - Assessment and plan all Dx Assessment and Plan for all problems:: BASED ON PATIENT FACTORS, RECOMMEND VANCOMYCIN 1 GM IV Q18H. PHARMACY WILL FOLLOW DAILY AND ADJUST APPROPRIATE.
[2018-03-15 12:26] LABS: Creatine Kinase 63 U/L (26-192)
[2018-03-16 06:46] LABS: Basophils % 0.2 % (0.1-2.0); Eosinophils # 0.1 K/mm3 (0.0-0.4); Eosinophils % 0.5 % (0.1-12.0); Hematocrit 31.5 % (37.0-47.0); Hemoglobin 10.3 g/dL (12.2-16.2); Lymphocytes % 5.6 K/mm3 (10-50); Mean Corpuscular HGB Conc 32.6 g/dL (31.8-35.4); Mean Corpuscular Hemoglobin 30.6 pg (27.0-31.2); Mean Corpuscular Volume 93.7 fl (81-99); Monocytes # 0.7 K/mm3 (0.1-1.0); Monocytes % 4.1 % (1.7-9.3); Neutrophils # 15.7 K/mm3 (1.8-7.8); Neutrophils % 89.6 % (37.0-80.0); Platelet Count 202 K/mm3 (142-424); Red Blood Count 3.36 M/mm3 (4.20-5.40); White Blood Count 17.6 K/mm3 (4.8-10.8)
[2018-03-16 07:02] LABS: Albumin Level 2.4 gm/dL (3.4-5.0); Albumin/Globulin Ratio 0.8 (1.1-1.8); Anion Gap 10.7 mEq/L (5-15); Bilirubin,Total 0.2 mg/dL (0.2-1.0); Calcium 7.9 mg/dL (8.5-10.1); Potassium 3.7 mmoL/L (3.5-5.1); Total Protein,Serum 5.4 gm/dL (6.4-8.2)
--- NOTE | 2018-03-16 07:14 | Progress Note ---
Internal Medicine - PN: Subj *Date: 03/16/18 *Time: 07:12 Interval history: Patient did well overnight with no significant febrile episodes. Blood pressure and pulse have improved. Patient is without complaints this morning although her dementia certainly limits her communication issues. Exam Vital signs and Labs for Last 24 Hours: Temp Pulse Resp BP Pulse Ox 98.6 F 86 20 146/51 94 L 03/16/18 04:00 03/16/18 04:00 03/16/18 04:00 03/16/18 04:00 03/16/18 04:00 Laboratory Results - last 24 hr 03/15/18 06:10: Total Creatine Kinase 46, CK-MB (CK-2) 0.8 D, CK-MB (CK-2) Rel Index 1.7, Troponin I < 0.02 03/15/18 07:20: Lactic Acid Fup @ 4Hr 1.5 03/15/18 11:53: Total Creatine Kinase 63, CK-MB (CK-2) 1.0, CK-MB (CK-2) Rel Index 1.6, Troponin I < 0.02 03/16/18 06:05: WBC 17.6 H D, RBC 3.36 L, Hgb 10.3 L, Hct 31.5 L, MCV 93.7, MCH 30.6, MCHC 32.6, RDW 13.0, Plt Count 202 D, MPV 7.0 L, Neut % (Auto) 89.6 H, Lymph % (Auto) 5.6 L, [place] % (Auto) 4.1, Eos % (Auto) 0.5, Baso % (Auto) 0.2, Neut # (Auto) 15.7 H, Lymph # (Auto) 1.0, [place] # (Auto) 0.7, Eos # (Auto) 0.1, Baso # (Auto) 0.0 03/16/18 06:05: Sodium 139, Potassium 3.7, Chloride 107, Carbon Dioxide 25, Anion Gap 10.7, BUN 11, Creatinine 0.62, Estimated Creat Clear 39, Estimated GFR 92, Est GFR ( Amer) 112, Glucose 105, Calcium 7.9 L, Total Bilirubin 0.2, AST 24, ALT 31 D, Alkaline Phosphatase 53, Total Protein 5.4 L, Albumin 2.4 L D, Globulin 3.0, Albumin/Globulin Ratio 0.8 L I & O for Last 24 hours: Intake & Output 03/13/18 03/14/18 03/15/18 03/16/18 11:59 11:59 11:59 11:59 Intake Total 2360 / 2360 1159 / 1159 Output Total 1850 / 1850 Balance 2360 / 2360 -691 / -691 Weight 123 lb 8 oz Microbiology Reports for the Last 24 Hours: Microbiology 03/15/18 02:50 Urine,Catheterized Urine Culture - Preliminary NO GROWTH AFTER 24 HOURS Narrative: Patient's tremulousness remains. Oropharynx is moist. Anterior lung ibarra and posterior ibarra are clear, heart rate regular. Abdomen soft. She has no edema in her leg, wearing compression stockings. Assessment and Plan (1) Sepsis Start date: 03/15/18 Current visit: Yes Status: Acute Qualifiers: Sepsis type: sepsis due to unspecified organism Qualified Code(s): A41.9 - Sepsis, unspecified organism Category: Medical Code(s): A41.9 - Sepsis, unspecified organism Blood cultures negative, blood pressure is improved. Continue to watch cultures. Continue current antibiotic therapy. Of note white cell count is elevated. Track this again tomorrow. Possibly response to hydration/improved immune system response (2) Fever Current visit: Yes Status: Acute Qualifiers: Fever type: unspecified Qualified Code(s): R50.9 - Fever, unspecified Category: Medical Code(s): R50.9 - Fever, unspecified (3) UTI (urinary tract infection) Current visit: Yes Status: Acute Qualifiers: Urinary tract infection type: site unspecified Hematuria presence: without hematuria Qualified Code(s): N39.0 - Urinary tract infection, site not specified Category: Medical Code(s): N39.0 - Urinary tract infection, site not specified Culture remains negative. Continue to follow, continue IV antibiotics (4) Alzheimer's dementia Current visit: Yes Status: Acute Category: Medical Code(s): G30.9 - Alzheimer's disease, unspecified; F02.80 - Dementia in other diseases classified elsewhere without behavioral disturbance (5) Hypertension Current visit: Yes Status: Acute Category: Medical Code(s): I10 - Essential (primary) hypertension
[2018-03-16 07:21] LABS: Lymphocytes % 6 % (10-50); Monocytes % 4 % (2-9); Neutrophils % 88 % (42-76); Total Cells Counted 100
[2018-03-17 06:50] LABS: Basophils % 0.2 % (0.1-2.0); Eosinophils # 0.2 K/mm3 (0.0-0.4); Eosinophils % 1.7 % (0.1-12.0); Hematocrit 31.2 % (37.0-47.0); Hemoglobin 10.3 g/dL (12.2-16.2); Lymphocytes # 1.1 K/mm3 (0.7-4.5); Lymphocytes % 8.3 K/mm3 (10-50); Mean Corpuscular HGB Conc 32.9 g/dL (31.8-35.4); Mean Corpuscular Hemoglobin 30.6 pg (27.0-31.2); Mean Corpuscular Volume 92.8 fl (81-99); Mean Platelet Volume 6.8 fl (7.4-10.4); Monocytes # 0.6 K/mm3 (0.1-1.0); Monocytes % 4.7 % (1.7-9.3); Neutrophils # 11.2 K/mm3 (1.8-7.8); Neutrophils % 85.1 % (37.0-80.0); Platelet Count 211 K/mm3 (142-424); Red Blood Count 3.36 M/mm3 (4.20-5.40); Red Cell Distribution Width 12.7 % (11.5-17.5); White Blood Count 13.2 K/mm3 (4.8-10.8)
[2018-03-17 07:01] LABS: Albumin Level 2.3 gm/dL (3.4-5.0); Albumin/Globulin Ratio 0.8 (1.1-1.8); Anion Gap 10.5 mEq/L (5-15); Bilirubin,Total 0.2 mg/dL (0.2-1.0); Calcium 7.8 mg/dL (8.5-10.1); Globulin 2.9 gm/dl (1.3-3.2); Potassium 3.5 mmoL/L (3.5-5.1); Total Protein,Serum 5.2 gm/dL (6.4-8.2)
[2018-03-17 07:05] LABS: Lymphocytes % 8 % (10-50); Monocytes % 1 % (2-9); Neutrophils % 85 % (42-76); RBC Morphology Normal; Total Cells Counted 100
--- NOTE | 2018-03-17 08:26 | Progress Note ---
Internal Medicine - PN: Subj *Date: 03/17/18 *Time: 08:24 Interval history: Patient is awake and alert this morning. Has been somewhat restless at her normal rate of agitation. Reviewed new microbiology data from overnight. Patient is without pain this morning. Discussed case with her and her daughter. Exam Vital signs and Labs for Last 24 Hours: Temp Pulse Resp BP Pulse Ox 98.4 F 95 H 22 198/76 94 L 03/17/18 07:44 03/17/18 07:44 03/17/18 07:44 03/17/18 07:44 03/17/18 07:47 Laboratory Results - last 24 hr 03/17/18 06:07: WBC 13.2 H, RBC 3.36 L, Hgb 10.3 L, Hct 31.2 L, MCV 92.8, MCH 30.6, MCHC 32.9, RDW 12.7, Plt Count 211, MPV 6.8 L, Neut % (Auto) 85.1 H, Lymph % (Auto) 8.3 L, [place] % (Auto) 4.7, Eos % (Auto) 1.7, Baso % (Auto) 0.2, Neut # (Auto) 11.2 H, Lymph # (Auto) 1.1, [place] # (Auto) 0.6, Eos # (Auto) 0.2, Baso # (Auto) 0.0, Total Counted 100, Neutrophils % (Manual) 85 H, Band Neutrophils % 6.0, Lymphocytes % (Manual) 8 L, Monocytes % (Manual) 1 L, Platelet Estimate Normal, RBC Morphology Normal 03/17/18 06:07: Sodium 138, Potassium 3.5, Chloride 107, Carbon Dioxide 24, Anion Gap 10.5, BUN 6 L D, Creatinine 0.44 L D, Estimated Creat Clear 39, Estimated GFR 137, Est GFR ( Amer) 166 D, Glucose 103, Calcium 7.8 L, Total Bilirubin 0.2, AST 16 D, ALT 24, Alkaline Phosphatase 51, Total Protein 5.2 L, Albumin 2.3 L, Globulin 2.9, Albumin/Globulin Ratio 0.8 L I & O for Last 24 hours: Intake & Output 03/14/18 03/15/18 03/16/18 03/17/18 11:59 11:59 11:59 11:59 Intake Total 2360 / 2360 1399 / 1399 600 / 600 Output Total 1850 / 1850 2550 / 2550 Balance 2360 / 2360 -451 / -451 -1950 / -1950 Weight 123 lb 8 oz Microbiology Reports for the Last 24 Hours: Microbiology 03/15/18 02:50 Urine,Catheterized Urine Culture - Final Escherichia coli 03/15/18 02:50 Blood Blood Culture - Preliminary 03/15/18 02:50 Blood Blood Culture - Preliminary Narrative: Alert, tremulousness noted. Lungs are clear, heart rate regular. Abdomen soft. No changes in neuro exam. Blood pressure and pulse are vastly improved. Good urine output. Assessment and Plan (1) Sepsis Start date: 03/15/18 Current visit: Yes Status: Acute Qualifiers: Sepsis type: sepsis due to unspecified organism Qualified Code(s): A41.9 - Sepsis, unspecified organism Category: Medical Code(s): A41.9 - Sepsis, unspecified organism Gram-positive cocci in blood. Continue vancomycin. Ceftriaxone as noted below. Stop aztreonam, await formal cultures. PICC line placement today. (2) Fever Current visit: Yes Status: Acute Qualifiers: Fever type: unspecified Qualified Code(s): R50.9 - Fever, unspecified Category: Medical Code(s): R50.9 - Fever, unspecified (3) UTI (urinary tract infection) Current visit: Yes Status: Acute Qualifiers: Urinary tract infection type: site unspecified Hematuria presence: without hematuria Qualified Code(s): N39.0 - Urinary tract infection, site not specified Category: Medical Code(s): N39.0 - Urinary tract infection, site not specified Secondary to E. coli, pansensitive. Change to ceftriaxone intravenously. Continue vancomycin, stop aztreonam. (4) Alzheimer's dementia Current visit: Yes Status: Acute Category: Medical Code(s): G30.9 - Alzheimer's disease, unspecified; F02.80 - Dementia in other diseases classified elsewhere without behavioral disturbance (5) Hypertension Current visit: Yes Status: Acute Category: Medical Code(s): I10 - Essential (primary) hypertension Improved. Continue home medications.
--- NOTE | 2018-03-17 10:07 | Pharmacy Consult Notes ---
- Pharmacy Consult Date: 03/17/18 Time: 10:05 Referring provider: DR. GILBERT Reason for Consult:: VANCOMYCIN TROUGH LEVEL Allergies and ADEs:: Allergies Allergy/AdvReac Type Severity Reaction Status Date / Time amoxicillin [From AMOXIL] Allergy Mild ITCHING Verified 03/15/18 02:43 levofloxacin [From LEVAQUIN] Allergy Mild I-RASH Verified 03/15/18 02:43 nitrofurantoin Allergy Mild rash Verified 03/15/18 02:43 [From MACROBID] Home Medications:: Home Medications Medication Instructions Recorded Confirmed Type acetaminophen 500 mg capsule 1,000 mg PO Q6HP PRN 10/25/17 03/15/18 History atorvastatin 40 mg tablet 40 mg PO HS tab 10/25/17 03/15/18 History cholecalciferol (vitamin D3) 2,000 2,000 unit PO DAILY cap 10/25/17 03/15/18 History unit capsule loperamide 1 mg/5 mL oral liquid 15 ml PO BID ml 10/25/17 03/15/18 History loperamide 2 mg capsule 2 mg PO DAILY PRN cap 10/25/17 03/15/18 History lorazepam 0.5 mg tablet 0.5 mg PO TID PRN tab 10/25/17 03/15/18 History primidone 50 mg tablet 250 mg PO QHS 10/25/17 03/15/18 History trazodone 100 mg tablet 50 mg PO HS 10/25/17 03/15/18 History Aspirin [Aspirin 81mg chewable 81 mg PO DAILY 03/15/18 03/15/18 History tab] Calcium Carbonate/Vitamin D3 1 each PO DAILY 03/15/18 03/15/18 History [Calcium 600-Vit D3 200 Tablet] Citalopram Hydrobromide [Celexa 10 mg PO HS 03/15/18 03/15/18 History 10mg Tablet] Levocetirizine Dihydrochloride 5 mg PO DAILY 03/15/18 03/15/18 History Levothyroxine Sodium 150 mcg PO DAILY 03/15/18 03/15/18 History [Levothyroxine 150mcg (0.15mg) Tab] Memantine HCl [Namenda Xr] 28 mg PO DAILY 03/15/18 03/15/18 History Methenamine Hippurate 1 gm PO DAILY 03/15/18 03/15/18 History Methylcellulose [Citrucel] 500 mg PO BID 03/15/18 03/15/18 History Multivitamin with Minerals [One 1 tab PO DAILY 03/15/18 03/15/18 History Daily Plus Minerals] Primidone [Mysoline] 50 mg PO DAILY 03/15/18 03/15/18 History Rivastigmine [Exelon] 13.3 mg TD DAILY 03/15/18 03/15/18 History guaiFENesin [Robafen] 5 ml PO Q8HP PRN 03/15/18 03/15/18 History Amlodipine Besylate [Norvasc 5mg 5 mg PO DAILY 03/17/18 03/17/18 History tablet] Propranolol HCl [Inderal 20mg 20 mg PO TID 03/17/18 03/17/18 History tablet] Height: 1.68 m Weight: 56.019 kg Laboratory Results:: Laboratory Results - last 24 hr 03/17/18 06:07: WBC 13.2 H, RBC 3.36 L, Hgb 10.3 L, Hct 31.2 L, MCV 92.8, MCH 30.6, MCHC 32.9, RDW 12.7, Plt Count 211, MPV 6.8 L, Neut % (Auto) 85.1 H, Lymph % (Auto) 8.3 L, [place] % (Auto) 4.7, Eos % (Auto) 1.7, Baso % (Auto) 0.2, Neut # (Auto) 11.2 H, Lymph # (Auto) 1.1, [place] # (Auto) 0.6, Eos # (Auto) 0.2, Baso # (Auto) 0.0, Total Counted 100, Neutrophils % (Manual) 85 H, Band Neutrophils % 6.0, Lymphocytes % (Manual) 8 L, Monocytes % (Manual) 1 L, Platelet Estimate Normal, RBC Morphology Normal 03/17/18 06:07: Sodium 138, Potassium 3.5, Chloride 107, Carbon Dioxide 24, Anion Gap 10.5, BUN 6 L D, Creatinine 0.44 L D, Estimated Creat Clear 39, Estimated GFR 137, Est GFR ( Amer) 166 D, Glucose 103, Calcium 7.8 L, Total Bilirubin 0.2, AST 16 D, ALT 24, Alkaline Phosphatase 51, Total Protein 5.2 L, Albumin 2.3 L, Globulin 2.9, Albumin/Globulin Ratio 0.8 L 03/17/18 09:33: Vancomycin Trough 6.6 L Medical History: Reports:: Hyperlipidemia, Hypertension, Myocardial Infarction Denies:: Cancer, Diabetes Mellitus Type 1, Diabetes Mellitus Type 2, MRSA Assessment and Plan (1) Sepsis Start date: 03/15/18 Current visit: Yes Status: Acute Qualifiers: Sepsis type: sepsis due to unspecified organism Qualified Code(s): A41.9 - Sepsis, unspecified organism Category: Medical Code(s): A41.9 - Sepsis, unspecified organism (2) Fever Current visit: Yes Status: Acute Qualifiers: Fever type: unspecified Qualified Code(s): R50.9 - Fever, unspecified Category: Medical Code(s): R50.9 - Fever, unspecified (3) UTI (urinary tract infection) Current visit: Yes Status: Acute Qualifiers: Urinary tract infection type: site unspecified Hematuria presence: without hematuria Qualified Code(s): N39.0 - Urinary tract infection, site not specified Category: Medical Code(s): N39.0 - Urinary tract infection, site not specified (4) Alzheimer's dementia Current visit: Yes Status: Acute Category: Medical Code(s): G30.9 - Alzheimer's disease, unspecified; F02.80 - Dementia in other diseases classified elsewhere without behavioral disturbance (5) Hypertension Current visit: Yes Status: Acute Category: Medical Code(s): I10 - Essential (primary) hypertension - Assessment and plan all Dx Assessment and Plan for all problems:: BASED ON VANCOMYCIN TROUGH LEVEL AND PATIENT FACTORS, RECOMMEND CHANGING INTERVAL TO VANCOMYCIN 1 GM IV Q12H. PHARMACY WILL CONTINUE TO MONITOR DAILY AND ADJUST APPROPRIATE.
[2018-03-18 05:57] LABS: Basophils % 0.3 % (0.1-2.0); Eosinophils # 0.2 K/mm3 (0.0-0.4); Eosinophils % 1.9 % (0.1-12.0); Hematocrit 32.2 % (37.0-47.0); Lymphocytes # 1.7 K/mm3 (0.7-4.5); Lymphocytes % 18.4 K/mm3 (10-50); Mean Corpuscular HGB Conc 34.1 g/dL (31.8-35.4); Mean Corpuscular Volume 90.9 fl (81-99); Mean Platelet Volume 6.8 fl (7.4-10.4); Monocytes # 0.6 K/mm3 (0.1-1.0); Neutrophils # 6.6 K/mm3 (1.8-7.8); Neutrophils % 73.4 % (37.0-80.0); Platelet Count 233 K/mm3 (142-424); Red Blood Count 3.54 M/mm3 (4.20-5.40); Red Cell Distribution Width 12.7 % (11.5-17.5)
[2018-03-18 06:11] LABS: Anion Gap 11.5 mEq/L (5-15); Calcium 8.5 mg/dL (8.5-10.1); Potassium 3.5 mmoL/L (3.5-5.1)
--- NOTE | 2018-03-18 08:32 | Discharge Summary ---
General - General Admission date:: 03/15/18 Discharge date: 03/18/18 HPI HPI: Ms. Hayes is an 83-year-old female who presents with 2-3 days of worsening fever, Nausea, vomiting. Found last night at her Assisted living facility having vomited with low O2 sats. Daughter at bedside providing history. Reports her mother has a history of urinary tract infections and was currently being worked up for urinary tract infection at her assisted living home. They were awaiting cultures when condition declined. She states her mentation is not at baseline she is more agitated and irritable than normal. Additionally she has been having increased loose stools. On admission in the ER patient was febrile greater than 102, tachycardic greater than 100, and had suspected source of urinary tract infection. Admitted to overnight for sepsis due to urinary tract infection. Daughter denies any new rashes, cough. Hospital Course Hospital Course: Patient was admitted, placed on vancomycin and aztreonam because of allergy profiles to cover gram-positive and gram-negative causes of sepsis/UTI issue Patient improved nicely over the next 24-48 hours. Patient had cultures from urine showing E. coli, sensitive to ceftriaxone, and aztreonam was changed over to ceftriaxone and she tolerated this very nicely. Vancomycin was continued and her blood culture showed 2 different kinds of staphylococcal species-most consistent with contamination. Her perfusion status improved. Vital signs normalized. Her blood pressure medications were restarted. This morning she was back to her baseline although she was significantly anxious because of her for environment being in the hospital as a retirement. PICC line placed today and then she will be transferred back to the [facility]. She will need ceftriaxone 1 g daily for the next 10 days, and vancomycin 1 g every 12 hours for the next 10 days. Pharmacy service will monitor trough levels as instructed. She will need CBC/BMP on 03/21/18. Please note she will continue to maintain her DNR status. Objective Vital signs: Temp Pulse Resp BP Pulse Ox 99.0 F 78 18 169/53 96 03/18/18 07:36 03/18/18 07:36 03/18/18 07:36 03/18/18 07:36 03/18/18 07:36 Narrative: She has her baseline tremor. Is oriented 2 but very anxious. Her daughter is in the room and does a great job of managing her anxiety. Lungs have good air movement, heart rate regular. Abdomen soft. Perfusion is normal. Results Labs on day of discharge: Labs from last 24 hours 03/18/18 03/18/18 03/17/18 05:30 05:30 09:33 WBC 9.0 D RBC 3.54 L Hgb 11.0 L Hct 32.2 L MCV 90.9 MCH 31.0 MCHC 34.1 RDW 12.7 Plt Count 233 MPV 6.8 L Neut % (Auto) 73.4 Lymph % (Auto) 18.4 [place] % (Auto) 6.0 Eos % (Auto) 1.9 Baso % (Auto) 0.3 Neut # (Auto) 6.6 Lymph # (Auto) 1.7 [place] # (Auto) 0.6 Eos # (Auto) 0.2 Baso # (Auto) 0.0 Sodium 142 Potassium 3.5 Chloride 107 Carbon Dioxide 27 Anion Gap 11.5 BUN 6 L Creatinine 0.43 L Estimated Creat Clear 39 Estimated GFR 141 Est GFR ( Amer) 171 Glucose 96 Calcium 8.5 Urine Color Urine Appearance Urine pH Ur Specific [place] Urine Protein Urine Glucose (UA) Urine Ketones Urine Blood Urine Nitrate Urine Bilirubin Urine Urobilinogen Ur Leukocyte Esterase Urine RBC Urine WBC Urine Bacteria Vancomycin Trough 6.6 L 03/15/18 02:50 WBC RBC Hgb Hct MCV MCH MCHC RDW Plt Count MPV Neut % (Auto) Lymph % (Auto) [place] % (Auto) Eos % (Auto) Baso % (Auto) Neut # (Auto) Lymph # (Auto) [place] # (Auto) Eos # (Auto) Baso # (Auto) Sodium Potassium Chloride Carbon Dioxide Anion Gap BUN Creatinine Estimated Creat Clear Estimated GFR Est GFR ( Amer) Glucose Calcium Urine Color Yellow Urine Appearance Clear Urine pH 7.0 Ur Specific [place] <= 1.005 Urine Protein Negative Urine Glucose (UA) Negative Urine Ketones Negative Urine Blood 3+ Urine Nitrate Negative Urine Bilirubin Negative Urine Urobilinogen 0.2 Ur Leukocyte Esterase 2+ A Urine RBC Tntc Urine WBC 5-10 Urine Bacteria 1+ Vancomycin Trough Preliminary micro results at discharge 03/15/18 02:50 Blood Culture - Preliminary Blood Staphylococcus capitis Gram Positive Cocci#2 DS: Diagnosis - Discharge Diagnosis (1) Sepsis Status: Acute (2) Fever Status: Resolved (3) UTI (urinary tract infection) Status: Acute (4) Alzheimer's dementia Status: Acute (5) Hypertension Status: Acute Discharge Plan - Patient Discharge Instructions ACTIVITY: Continue current activity DIET: continue same diet - Follow up Plan Follow up with: Anjelica Poole APRN [Nurse Practitioner] - Disposition: Xfer [facility] Home Medications: Home Medications Medication Instructions Recorded Confirmed Type acetaminophen 500 mg capsule 1,000 mg PO Q6HP PRN 10/25/17 03/15/18 History atorvastatin 40 mg tablet 40 mg PO HS tab 10/25/17 03/15/18 History cholecalciferol (vitamin D3) 2,000 2,000 unit PO DAILY cap 10/25/17 03/15/18 History unit capsule loperamide 1 mg/5 mL oral liquid 15 ml PO BID ml 10/25/17 03/15/18 History loperamide 2 mg capsule 2 mg PO DAILY PRN cap 10/25/17 03/15/18 History primidone 50 mg tablet 250 mg PO QHS 10/25/17 03/15/18 History trazodone 100 mg tablet 50 mg PO HS 10/25/17 03/15/18 History Aspirin [Aspirin 81mg chewable 81 mg PO DAILY 03/15/18 03/15/18 History tab] Calcium Carbonate/Vitamin D3 1 each PO DAILY 03/15/18 03/15/18 History [Calcium 600-Vit D3 200 Tablet] Citalopram Hydrobromide [Celexa 10 mg PO HS 03/15/18 03/15/18 History 10mg Tablet] Levocetirizine Dihydrochloride 5 mg PO DAILY 03/15/18 03/15/18 History Levothyroxine Sodium 150 mcg PO DAILY 03/15/18 03/15/18 History [Levothyroxine 150mcg (0.15mg) Tab] Memantine HCl [Namenda Xr] 28 mg PO DAILY 03/15/18 03/15/18 History Methenamine Hippurate 1 gm PO DAILY 03/15/18 03/15/18 History Methylcellulose [Citrucel] 500 mg PO BID 03/15/18 03/15/18 History Multivitamin with Minerals [One 1 tab PO DAILY 03/15/18 03/15/18 History Daily Plus Minerals] Primidone [Mysoline] 50 mg PO DAILY 03/15/18 03/15/18 History Rivastigmine [Exelon] 13.3 mg TD DAILY 03/15/18 03/15/18 History guaiFENesin [Robafen] 5 ml PO Q8HP PRN 03/15/18 03/15/18 History Amlodipine Besylate [Norvasc 5mg 5 mg PO DAILY 03/17/18 03/17/18 History tablet] Propranolol HCl [Inderal 20mg 20 mg PO TID 03/17/18 03/17/18 History tablet] Prescriptions/Medication Reconciliation: New Ceftriaxone 1 gm [Rocephin 1gm ADV] 1 gm IV DAILY #10 vial.port Vancomycin HCl [Vancomycin 1000mg Vial] 1 gm IV Q12 10 Days vial Continue atorvastatin 40 mg tablet 40 mg PO HS tab cholecalciferol (vitamin D3) 2,000 unit capsule 2,000 unit PO DAILY cap trazodone 100 mg tablet 50 mg PO HS loperamide 1 mg/5 mL oral liquid 15 ml PO BID ml primidone 50 mg tablet 250 mg PO QHS acetaminophen 500 mg capsule 1,000 mg PO Q6HP PRN PRN Reason: PAIN/FEVER loperamide 2 mg capsule 2 mg PO DAILY PRN cap PRN Reason: Diarrhea Rivastigmine [Exelon] 13.3 mg TD DAILY Memantine HCl [Namenda Xr] 28 mg PO DAILY Methylcellulose [Citrucel] 500 mg PO BID guaiFENesin [Robafen] 5 ml PO Q8HP PRN PRN Reason: Cough Primidone [Mysoline] 50 mg PO DAILY Levocetirizine Dihydrochloride 5 mg PO DAILY Citalopram Hydrobromide [Celexa 10mg Tablet] 10 mg PO HS Multivitamin with Minerals [One Daily Plus Minerals] 1 tab PO DAILY Aspirin [Aspirin 81mg chewable tab] 81 mg PO DAILY Propranolol HCl [Inderal 20mg tablet] 20 mg PO TID LORazepam [Ativan] 0.5 mg PO TID PRN #60 tab PRN Reason: Anxiety Calcium Carbonate/Vitamin D3 [Calcium 600-Vit D3 200 Tablet] 1 each PO DAILY Methenamine Hippurate 1 gm PO DAILY Levothyroxine Sodium [Levothyroxine 150mcg (0.15mg) Tab] 150 mcg PO DAILY Amlodipine Besylate [Norvasc 5mg tablet] 5 mg PO DAILY
== END 2018-03-18 15:54 ==
LOC: ER 02:33 → 2ND 03:55
PROVIDERS: ADMIT Family Medicine; ATTEND Internal Medicine Adolescent Medicine

== ENCOUNTER → 2018-03-23 01:26 | Outpatient (REF) | payer MEDICARE, MEDICAID, SELFPAY ==
[2018-03-23 01:58] LABS: Anion Gap 11.1 mEq/L (5-15); Blood Urea Nitrogen 7 mg/dL (7-18); Calcium 8.3 mg/dL (8.5-10.1); Carbon Dioxide 30 mmol/L (21.0-32.0); Chloride 107 mmol/L (98-107); Creatinine,Serum 0.58 mg/dL (0.55-1.02); Estimated Glomerular Filt Rate 100 ml/min (>60); GFR (African American) 121 ML/MIN (>60); Glucose 95 mg/dL (74-106); Potassium 3.1 mmoL/L (3.5-5.1); Sodium 145 mmol/L (136-145); Vancomycin,Trough 14.9 mcg/ml (10.0-20.0)
== END ==
LOC: LAB 01:26
PROVIDERS: Visit Provider Internal Medicine Adolescent Medicine
DX: N39.0 Urinary tract infection, site not specified (principal)
CPT/HCPCS: 80048; 80202

== ENCOUNTER → 2018-03-25 10:10 | Outpatient (CLI) | payer MEDICARE, MEDICAID, SELFPAY ==
[2018-03-25 10:34] VITALS: BMI 20.5
--- NOTE | 2018-03-25 11:05 | XR_ITS ---
XR chest portable PICC plac HISTORY: ITS.REASON: PICC line placement ORDERING PHYSICIAN: Aurelio Irvin MD PATIENT AGE: 83 years COMPARISON: 03/18/2018 FINDINGS: Left upper extremity PICC line has been placed. The tip is in good position in the region of the superior vena cava. Cardiovascular structures are unremarkable and the lungs are clear bilaterally. IMPRESSION: PICC line good position.
== END ==
PROVIDERS: PCP Internal Medicine Adolescent Medicine; Visit Provider Internal Medicine Adolescent Medicine
DX: N39.0 Urinary tract infection, site not specified (principal)
CPT/HCPCS: 36569; 71045; C1751

== ENCOUNTER → 2018-03-28 16:33 | Outpatient (REF) | payer MEDICARE, MEDICAID, SELFPAY ==
[2018-03-28 17:31] LABS: Anion Gap 9.1 mEq/L (5-15); Blood Urea Nitrogen 11 mg/dL (7-18); Calcium 9.3 mg/dL (8.5-10.1); Carbon Dioxide 30 mmol/L (21.0-32.0); Chloride 106 mmol/L (98-107); Creatinine,Serum 0.92 mg/dL (0.55-1.02); Estimated Glomerular Filt Rate 59 ml/min (>60); GFR (African American) 71 ML/MIN (>60); Glucose 96 mg/dL (74-106); Potassium 4.1 mmoL/L (3.5-5.1); Sodium 141 mmol/L (136-145)
[2018-03-28 17:45] LABS: Vancomycin,Trough 27.2 mcg/ml (10.0-20.0)
== END ==
LOC: LAB 16:33
PROVIDERS: Visit Provider Internal Medicine Adolescent Medicine
DX: N39.0 Urinary tract infection, site not specified (principal); Z51.81 Encounter for therapeutic drug level monitoring
CPT/HCPCS: 80048; 80202

== ENCOUNTER 2019-12-05 15:00 | Inpatient (IN) | payer MEDICARE, MEDICAID, SELFPAY ==
[2019-12-05] VITALS (16 sets, daily range): BP systolic 99–215; BP diastolic 47–93; PULSE 78–93; RESP 18–28; TEMP 37–38.2; O2SAT 96–100; BMI 22.0; BMI 219882.1
--- NOTE | 2019-12-05 15:26 | PC.NURSE ---
called [facility] for dnr status, asked them to fax it
--- NOTE | 2019-12-05 15:27 | PC.NURSE ---
Dr Diaz speaking with pt daughter Anne Fuentes re: code status.
--- NOTE | 2019-12-05 15:31 | XR_ITS ---
PROCEDURE: XR CHEST PORTABLE CLINICAL HISTORY: hypoxia COMPARISON: [facility] CT angio chest from 03/15/2018 [id number] XR chest portable from 03/15/2018 [id number] XR chest portable PICC plac from 03/18/2018 [id number] XR chest portable PICC plac from 03/25/2018 FINDINGS: The cardiomediastinal silhouette and pulmonary vascularity are within normal limits. There are increased markings in the right infrahilar region and left lung base suspicious for areas of atelectasis or infiltrate. No acute bony abnormalities. IMPRESSION: Suspected atelectasis or infiltrate in the lower lobes Dictated by: Gonzalez Gutiérrez MD 12/05/2019 16:13 Electronically signed by Gonzalez Gutiérrez MD in [place] 12/05/2019 16:13
[2019-12-05 15:42] LABS: Appearance,Urine CLEAR (Clear); Blood, Urine Negative (Negative); Color,Urine YELLOW (Yellow); Glucose,Urine (UA) Negative (Negative); Ketones,Urine Negative (Negative); Leukocyte Esterase,Urine TRACE (Negative); Microscopic, Urine URINE MICROSCOPIC (MICROSCOPIC); Nitrate,Urine POSITIVE (Negative); Protein,Urine TRACE (Negative); Specific Gravity, Urine >= 1.030 (1.005-1.030); Urobilinogen,Urine 0.2 EU/dl (0.2)
[2019-12-05 15:42] LABS: Basophils % 0.2 % (0.1-2.0); Eosinophils # 0.2 K/mm3 (0.0-0.4); Hematocrit 43.4 % (37.0-47.0); Hemoglobin 14.2 g/dL (12.2-16.2); Lymphocytes # 1.3 K/mm3 (0.7-4.5); Lymphocytes % 7.3 % (10-50); Mean Corpuscular HGB Conc 32.6 g/dL (31.8-35.4); Mean Corpuscular Hemoglobin 30.9 pg (27.0-31.2); Mean Corpuscular Volume 94.7 fl (81-99); Mean Platelet Volume 7.6 fl (7.4-10.4); Monocytes # 0.8 K/mm3 (0.1-1.0); Monocytes % 4.5 % (1.7-9.3); Neutrophils # 15.1 K/mm3 (1.8-7.8); Neutrophils % 86.9 % (37.0-80.0); Platelet Count 364 K/mm3 (142-424); Red Blood Count 4.59 M/mm3 (4.20-5.40); Red Cell Distribution Width 13.5 % (11.5-17.5); White Blood Count 17.3 K/mm3 (4.8-10.8)
[2019-12-05 15:45] LABS: Alanine Aminotransferase 30 U/L (12-78); Albumin Level 4.1 g/dl (3.5-5.0); Albumin/Globulin Ratio 1.2 (1.1-1.8); Alkaline Phosphatase 93 U/L (38-126); Aspartate Amino Transferase 40 U/L (14-36); Bilirubin,Total 0.2 mg/dl (0.2-1.3); Blood Urea Nitrogen 14 mg/dl (7-17); Calcium 9.5 mg/dl (8.4-10.2); Carbon Dioxide 29 mmol/L (22.0-30.0); Chloride 102 mmol/L (98-107); Creatinine Clearance Estimated 42 mL/min (50-200); Estimated Glomerular Filt Rate 118 ml/min (>60); GFR (African American) 143 ML/MIN (>60); Globulin 3.4 g/dL (1.3-3.2); Glucose 149 mg/dl (74-100); MANUAL DIFFERENTIAL MANUAL DIFFERENTIAL (MANUAL DIFF); Sodium 137 mmol/L (136-145); Total Protein,Serum 7.5 g/dl (6.3-8.2)
[2019-12-05 15:46] LABS: ABG Base Excess -3.7 mmol/L (-2.4-2.3); ABG HCO3 22.7 mmhg (22.0-26.0); ABG Oxygen Saturation 97 % (90-100); ABG PCO2 46.6 mmhg (35.0-45.0); ABG PH 7.31 mmol/L (7.35-7.45); ABG PO2 95.3 mmhg (80-100); ABG TCO2 24.1 mmhg (23-27)
[2019-12-05 15:47] LABS: Allen's Test ACCEPTABLE; Oxygen NRB %; Source R RADIAL
[2019-12-05 15:47] LABS: Bilirubin,Urine Negative (Negative)
[2019-12-05 15:49] LABS: Bacteria,Urine 4+ /lpf; Squamous Epithelial Cell,Urine Occasional #/hpf (0-5)
--- NOTE | 2019-12-05 15:53 | ECG_ITS ---
APPROVED REPORT Exam: Resting ECG HR:90 bpm ECG Measurements Heart Rate 90 AXES PA 132 P 65 QRSd 74 QRS -49 QT 376 T 68 QTc 459 <Conclusion> Normal sinus rhythm Left axis deviation,LAHB RSR' or QR pattern in V1 suggests right ventricular delay Abnormal ECG Electronically signed by : Sohail Goldberg, 12/06/2019 14:38:57
[2019-12-05 15:54] LABS: NT Pro Brain Natriuretic Pep. 162 pg/mL (0-450)
[2019-12-05 15:57] LABS: Troponin I < 0.01 ng/ml (0.00-0.034)
[2019-12-05 16:00] LABS: Eosinophils % 3 % (0-3); Lymphocytes % 5 % (10-50); Monocytes % 7 % (2-9); Neutrophils % 85 % (42-76); Platelet Estimate Normal; RBC Morphology Normal; Total Cells Counted 100
[2019-12-05 16:08] LABS: Strep Scrn Group A (Rapid) Negative (Negative)
--- NOTE | 2019-12-05 16:21 | PC.NURSE ---
SPEAKING WITH DR CALDERON AT THIS TIME. DR CALDERON IS FLOWER C[employer]TER FOR DR GILBERT.
--- NOTE | 2019-12-05 16:26 | CT_ITS ---
PROCEDURE: CT ANGIO CHEST CLINCIAL INDICATION: hypoxia Hypoxia, cough COMPARISON: [facility] CT angio chest from 03/15/2018 TECHNIQUE: IV Contrast: 70ML OPTIRAY 350 Axial images obtained with sagittal and coronal reformats. All CT scans at the facility use one or more dose reduction, viz: automated exposure control, ma/kV adjustment per patient size (including targeted exams where dose is matched to indication, i.e. head), or iterative reconstruction technique. FINDINGS: HEART AND MEDIASTINAL STRUCTURES: No evidence of pulmonary embolus aortic aneurysm or aortic dissection. Atherosclerotic changes with calcification involves the aorta. No mediastinal or hilar mass or adenopathy. LUNGS AND PLEURAL SPACES: Chronic changes. Patchy areas ground-glass density and consolidation with atelectasis noted in both lower lobes consistent bilateral lower lobe pneumonia. Subpleural opacity is present in the left lung base posteriorly and could be inflammatory/infectious. Smaller more dense areas of consolidation are present in the lower lobe centrally on the left and in and in the right lower lobe inferiorly. Subpleural parenchymal opacity is present in the right upper lobe along the major fissure at 1 cm and may be inflammatory/infectious. BONY STRUCTURES: No acute bony abnormalities apparent. UPPER ABDOMEN: Unremarkable. ADDITIONAL FINDINGS: No other significant abnormalities. IMPRESSION: No evidence of pulmonary embolus aortic aneurysm or aortic dissection. Bilateral lower lobe infiltrates, some of which have a ground glass appearance. Viral pneumonia is a consideration Dictated by: Gonzalez Gutiérrez MD 12/05/2019 17:15 Electronically signed by Gonzalez Gutiérrez MD in [place] 12/05/2019 17:20
--- NOTE | 2019-12-05 16:39 | HMH.EDGENADL ---
ED Disposition Clinical Impression: Acute respiratory failure with hypoxia, Viral pneumonia Aspiration pneumonia Qualifiers: Aspiration pneumonia type: due to regurgitated food Laterality: bilateral Lung location: lower lobe of lung Qualified Code(s): J69.0 - Pneumonitis due to inhalation of food and vomit Disposition: Admitted As Inpatient Condition on Discharge: Serious - Critical Care Critical Care Time: No Attestation: On 12/05/19, the high probability of a clinically significant, sudden or life threatening deterioration of the following system(s) required my full and direct attention, intervention and personal management. The time I documented below is in addition to time spent performing reported procedures but includes the following listed in this critical care notation. Medical Decision Making - Nav[place]et Inquiry Pt receiving controlled substance: No [place] was queried for this patient: No Vital Signs: 12/05/19 15:00 12/05/19 16:00 Temperature 100.7 F H Temperature Source Rectal Pulse Rate [Right Radial] 93 H 88 Respiratory Rate 24 28 H Blood Pressure [Right Arm] 215/93 H 187/83 H Blood Pressure Mean [Right Arm] 133 117 Blood Pressure Source [Right Arm] Automatic Cuff Blood Pressure Position [Right Arm] Sitting Sitting 02 Sat by Pulse Oximetry 97 100 Oxygen Delivery Method Non-Rebreather Venturi Mask Oxygen Flow Rate (LPM) 15 - Lab Data Lab Results 12/05/19 14:55: WBC 17.3 H, RBC 4.59, Hgb 14.2, Hct 43.4, MCV 94.7, MCH 30.9, MCHC 32.6, RDW 13.5, Plt Count 364, MPV 7.6, Neut % (Auto) 86.9 H, Lymph % (Auto) 7.3 L, [place] % (Auto) 4.5, Eos % (Auto) 1.0, Baso % (Auto) 0.2, Neut # (Auto) 15.1 H, Lymph # (Auto) 1.3, [place] # (Auto) 0.8, Eos # (Auto) 0.2, Baso # (Auto) 0.0, Total Counted 100, Neutrophils % (Manual) 85 H, Lymphocytes % (Manual) 5 L, Monocytes % (Manual) 7, Eosinophils % (Manual) 3, Platelet Estimate Normal, RBC Morphology Normal 12/05/19 14:55: Sodium 137, Potassium 4.0, Chloride 102, Carbon Dioxide 29, Anion Gap 10.0, BUN 14, Creatinine 0.50 L, Estimated Creat Clear 42, Estimated GFR 118, Est GFR ( Amer) 143, Glucose 149 H, Calcium 9.5, Total Bilirubin 0.2, AST 40 H, ALT 30, Alkaline Phosphatase 93, Troponin I < 0.01, Total Protein 7.5, Albumin 4.1, Globulin 3.4 H, Albumin/Globulin Ratio 1.2 12/05/19 14:55: NT-Pro-B Natriuret Pep 162 12/05/19 15:15: Urine Color Yellow, Urine Appearance Clear, Urine pH 6.0, Ur Specific [place] >= 1.030, Urine Protein Trace, Urine Glucose (UA) Negative, Urine Ketones Negative, Urine Blood Negative, Urine Nitrate Positive, Urine Bilirubin Negative, Urine Urobilinogen 0.2, Ur Leukocyte Esterase Trace, Urine RBC 5-10, Urine WBC 10-20, Ur Squamous Epith Cells Occasional, Urine Bacteria 4+ 12/05/19 15:30: Specimen Source R radial, O2 % Nrb, ABG pH 7.31 L, ABG pCO2 46.6 H, ABG pO2 95.3, ABG HCO3 22.7, ABG Total CO2 24.1, ABG O2 Saturation 97, ABG Base Excess -3.7 L, Gonzalez Test Acceptable 12/05/19 15:42: Influenza Type A Ag Negative, Influenza Type B Ag Negative 12/05/19 15:42: Group A Strep Rapid Negative 12/05/19 16:33: PT 12.5 H, INR 1.21 H, APTT 41.8 H Result diagrams: 12/05/19 14:55 12/05/19 14:55 Orders (Tests/Meds): ED MEDICATIONS Generic Name Dose Route Start Last Admin Trade Name Freq PRN Reason Stop Dose Admin Lactated Ringer's 1,000 mls @ 75 mls/hr 12/05/19 17:45 12/05/19 18:03 Lactated Ringer's 1000 Ml Bag IV 01/04/20 17:44 75 mls/hr .[id number] LANCE Administration Ceftriaxone Sodium 1 gm/ 50 mls @ 100 mls/hr 12/05/19 18:00 12/05/19 18:03 Sodium Chloride IV 12/19/19 17:59 100 mls/hr Q24H LANCE Administration Protocol Clindamycin Phosphate 900 mg/ 106 mls @ 106 mls/hr 12/05/19 19:00 12/05/19 19:26 Sodium Chloride IV 12/19/19 18:59 106 mls/hr Q8H LANCE Administration Protocol Sodium Chloride 3 ml 12/05/19 17:34 Sodium Chloride 3% 15ml Neb IH 01/04/20 15:42 ONCE PRN INDUCE SPUTUM COLLECTION Sodium Ch
[2019-12-05 17:12] LABS: INR 1.21 (0.9-1.1); Prothrombin Time 12.5 seconds (9.4-11.8)
[2019-12-05 17:15] LABS: Activated Partial Thrombo Time 41.8 seconds (23.6-34.0)
--- NOTE | 2019-12-05 17:31 | HMH.PHAVTE ---
[facility] Pharmacy VTE Monitoring - Patient Demographics Admission date: 12/05/19 Report Date: 12/05/19 Time: 17:31 Allergies/Adverse Reactions: Patient Allergies amoxicillin [From AMOXIL] Allergy (Mild, Verified 03/15/18 02:43) ITCHING levofloxacin [From LEVAQUIN] Allergy (Mild, Verified 03/15/18 02:43) I-RASH nitrofurantoin [From MACROBID] Allergy (Mild, Verified 03/15/18 02:43) rash Height: 1.68 m Weight: 61.887 kg - VTE Risk Labs: VTE Related Lab Results Hgb 14.2 g/dL (12.2-16.2) 12/05/19 14:55 Hct 43.4 % (37.0-47.0) 12/05/19 14:55 Plt Count 364 K/mm3 (142-424) 12/05/19 14:55 PT 12.5 seconds (9.4-11.8) H 12/05/19 16:33 INR 1.21 (0.9-1.1) H 12/05/19 16:33 APTT 41.8 seconds (23.6-34.0) H 12/05/19 16:33 BUN 14 mg/dl (7-17) 12/05/19 14:55 Creatinine 0.50 mg/dl (0.52-1.04) L 12/05/19 14:55 Estimated Creat Clear 42 mL/min (50-200) 12/05/19 14:55 - Prophylaxis VTE Prophylaxis Ordered?: Yes Types of VTE Prophylaxis: TEDS Knee High Location of Applied Device: Bilateral Lower Extremeties
--- NOTE | 2019-12-05 17:47 | HMH.HP ---
*Admission Date: 12/05/19 *Chief complaint: Respiratory distress, fever *History of present illness: Ms. Hayes is an 84-year-old female resident at [facility] who presented to the ER due to acute respiratory distress and fever. Of note she has a past medical history significant for Alzheimer's dementia, hypertension, hyperlipidemia, SD, and hypothyroidism. She was brought to the ER via EMS due to concern at the alf that she had worsening respiratory distress and possible aspiration event. On arrival to the alf by EMS, patient noted to be hypoxemic. She was placed on nonrebreather and brought to the ED for further management. Per ER documentation, she was noted to have an elevated white count, fever of 100.7, heart rate greater than 90, and respiratory acidosis on blood gas. CT of her chest noted bilateral lower lobe opacifications concerning for viral pneumonia versus aspiration pneumonia. Patient met septic criteria. Admitted to medicine for further management of her pneumonia and sepsis. Of note she is a DNR/DNI. Given her presentation with bilateral opacifications in her lungs, respiratory distress, fever, resident long-term nursing facility, Covid-19 test was performed. She was admitted under respiratory precautions. Family was contacted after I assessed the patient. Extensive discussion of patient's condition with patient's POA, her daughter, and code status evaluation. Pt arrived to the ER with advanced directives (stating DNR status) and EMS DNR paper work. Family however wanted to initially make patient full code. Discussed code status having no bearing on current treatment and aggressive approach to curing current illness. Daughter decided to have further discussion with Brother (Pts son) about code status. See Nurse note from YINA Mak about final decision of DNR status. They are however, okay with respiratory support if needed such as BiPAP or high flow nasal cannula. Unable to obtain history or review of systems from patient due to illness and dementia. [facility] History I have reviewed the patient's past medical history: Yes (Per chart review) Medical History: Reports:: Hyperlipidemia, Hypertension, Myocardial Infarction Denies:: Cancer, Diabetes Mellitus Type 1, Diabetes Mellitus Type 2, MRSA *Have you ever received a pneumonia vaccine?: Yes *Have you received a flu vaccine this season?: Yes Other Medical History: Reports: Anemia, Arthritis, Cataracts, Hypothyroidism Other Surgeries: Yes: Cholecystectomy Amputation: No - *Social History Smoking Status: Never smoker Alcohol Intake: never *Occupational Status:: other Housing: alf *Travel in the last 8 weeks: None Family Hx:: Cancer, Heart Attack, Hyperlipidemia, Hypertension, Thyroid Disorder Review of Systems - Review of Systems Review of systems:: unable to obtain (To obtain from patient given baseline dementia/Alzheimer's; no family at bedside due to visitation policy during pandemic) Meds Home Medications Medication Instructions Recorded Confirmed Type acetaminophen 500 mg capsule 1,000 mg PO Q6HP PRN 10/25/17 12/05/19 History atorvastatin 40 mg tablet 40 mg PO HS tab 10/25/17 12/05/19 History cholecalciferol (vitamin D3) 50 2,000 unit PO DAILY cap 10/25/17 12/05/19 History mcg (2,000 unit) capsule primidone 50 mg tablet 250 mg PO QHS 10/25/17 12/05/19 History Aspirin [Aspirin 81mg chewable 81 mg PO DAILY 03/15/18 12/05/19 History tab] Calcium Carbonate/Vitamin D3 1 each PO DAILY 03/15/18 12/05/19 History [Calcium 600-Vit D3 200 Tablet] Levocetirizine Dihydrochloride 5 mg PO DAILY 03/15/18 12/05/19 History Levothyroxine Sodium 175 mcg PO DAILY 03/15/18 12/05/19 History [Levothyroxine 150mcg (0.15mg) Tab] Memantine HCl [Namenda Xr] 28 mg PO DAILY 03/15/18 12/05/19 History Methenamine Hippurate 1 gm PO DAILY 03/15/18 12/05/19 History Methylcellulose [Citrucel] 500 mg PO BID 03/15/18 12/05/19 History
[2019-12-05 20:16] LABS: Troponin I < 0.01 ng/ml (0.00-0.034)
--- NOTE | 2019-12-05 20:56 | PC.NURSE ---
1911- MD Kenia at bedside. Verbal orders per MD Kenia: Mirtazapine 7.5 mg PO HS, Diazepam 5 mg PO TID, Duoneb IH q6h PRN 1950- Both of pt. poa's contacted this RN regarding code status. Interventions explained, POA's verbalized understanding. POA's desired pt. to be DNR at this time. Jarret Keith RN witnessed this verbal consent. Form signed and on chart, ready for MD review.
--- NOTE | 2019-12-05 21:55 | PC.NURSE ---
titrated venturi mask from 50 % on 15L to 40% on 12L; pt. 97% o2 sat at this time
[2019-12-05 22:26] LABS: Troponin I < 0.01 ng/ml (0.00-0.034)
--- NOTE | 2019-12-05 22:28 | PC.NURSE ---
CHANGED IVF RATE TO 110 ML/HR PER MAR AT THIS TIME
[2019-12-06] VITALS (16 sets, daily range): BP systolic 106–156; BP diastolic 46–95; PULSE 74–97; RESP 14–18; TEMP 36.3–37.7; O2SAT 89–99
--- NOTE | 2019-12-06 03:17 | PC.NURSE ---
0000- RT PRESENT; 3L O2 NC WITH 99% O2 SAT 0300- 1.5L NC WITH O2 SAT 95% PT. PLEASANTLY CONFUSED, ABLE TO STATE NAME AND FOLLOW COMMANDS. AUDIBLE INSPIRATORY WHEEZES HEARD AT THIS TIME. INTERMITTENT, WET NONPRODUCTIVE COUGH NOTED. NSR PER LOGISTICS ANALYTICS MANAGER.
--- NOTE | 2019-12-06 06:00 | XR_ITS ---
PROCEDURE: XR CHEST PORTABLE CLINICAL HISTORY: SOB COMPARISON: [id number] XR chest portable PICC plac from 03/18/2018 [id number] XR chest portable PICC plac from 03/25/2018 CT ANGIO CHEST from 12/05/2019 XR CHEST PORTABLE from 12/05/2019 FINDINGS: The lung ibarra are well expanded. The patient is slightly rotated to the right. There are subtle ill-defined opacities in the left perihilar region and left lower lobe with minimal atelectasis versus early ill-defined pneumonic infiltrates as possibilities. The left upper lung field and right lung ibarra are clear. Cardiac size is normal, there is mild aortic tortuosity. There is no pulmonary congestion and there is no pleural fluid. IMPRESSION: Subtle ill-defined opacities left perihilar region and left lower lobe, and early viral pneumonia cannot be entirely excluded though the rotation of the patient and lack of a lateral film makes evaluation somewhat suboptimal and consider of upright PA and lateral chest if the patient is able to assume the position. Dictated by: Dr. Omari Bay MD 12/06/2019 09:[address] Omari Bay MD in [place] 12/06/2019 09:41
[2019-12-06 06:01] LABS: Anion Gap 7.6 mEq/L (5-15); Blood Urea Nitrogen 12 mg/dl (7-17); Calcium 8.8 mg/dl (8.4-10.2); Carbon Dioxide 29 mmol/L (22.0-30.0); Chloride 104 mmol/L (98-107); Creatinine Clearance Estimated 42 mL/min (50-200); Estimated Glomerular Filt Rate 118 ml/min (>60); GFR (African American) 143 ML/MIN (>60); Potassium 3.6 mmoL/L (3.5-5.1); Sodium 137 mmol/L (136-145)
[2019-12-06 06:03] LABS: Basophils % 0.2 % (0.1-2.0); Eosinophils # 0.1 K/mm3 (0.0-0.4); Eosinophils % 0.8 % (0.1-12.0); Hematocrit 33.1 % (37.0-47.0); Lymphocytes # 1.5 K/mm3 (0.7-4.5); Lymphocytes % 11.6 % (10-50); Mean Corpuscular HGB Conc 33.3 g/dL (31.8-35.4); Mean Corpuscular Hemoglobin 30.9 pg (27.0-31.2); Mean Corpuscular Volume 92.8 fl (81-99); Mean Platelet Volume 7.9 fl (7.4-10.4); Monocytes # 0.7 K/mm3 (0.1-1.0); Monocytes % 5.2 % (1.7-9.3); Neutrophils # 10.4 K/mm3 (1.8-7.8); Neutrophils % 82.2 % (37.0-80.0); Platelet Count 275 K/mm3 (142-424); Red Blood Count 3.57 M/mm3 (4.20-5.40); Red Cell Distribution Width 13.5 % (11.5-17.5); White Blood Count 12.6 K/mm3 (4.8-10.8)
[2019-12-06 06:06] LABS: Glucose 101 mg/dl (74-100)
--- NOTE | 2019-12-06 09:12 | HMH.ACPN2 ---
Internal Medicine - PN: Subj *Date: 12/06/19 *Time: 11:00 Interval history: Patient has done well overnight. Able to de-escalate respiratory support to nasal cannula through the night. This morning on exam she is on room air satting low to mid 90s. Vitals remained stable. Unfortunately, did not pass bedside swallow and so nursing placed formal swallow assessment order. Patient remains pleasant but confused, though reportedly that is her baseline. Continuing isolation until COVID-19 result returns. Exam Vital signs and Labs for Last 24 Hours: Temp Pulse Resp BP Pulse Ox 98.1 F 85 15 138/68 95 12/06/19 08:00 12/06/19 08:00 12/06/19 08:00 12/06/19 08:00 12/06/19 08:45 Laboratory Results - last 24 hr 12/05/19 14:55: WBC 17.3 H, RBC 4.59, Hgb 14.2, Hct 43.4, MCV 94.7, MCH 30.9, MCHC 32.6, RDW 13.5, Plt Count 364, MPV 7.6, Neut % (Auto) 86.9 H, Lymph % (Auto) 7.3 L, [place] % (Auto) 4.5, Eos % (Auto) 1.0, Baso % (Auto) 0.2, Neut # (Auto) 15.1 H, Lymph # (Auto) 1.3, [place] # (Auto) 0.8, Eos # (Auto) 0.2, Baso # (Auto) 0.0, Total Counted 100, Neutrophils % (Manual) 85 H, Lymphocytes % (Manual) 5 L, Monocytes % (Manual) 7, Eosinophils % (Manual) 3, Platelet Estimate Normal, RBC Morphology Normal 12/05/19 14:55: Sodium 137, Potassium 4.0, Chloride 102, Carbon Dioxide 29, Anion Gap 10.0, BUN 14, Creatinine 0.50 L, Estimated Creat Clear 42, Estimated GFR 118, Est GFR ( Amer) 143, Glucose 149 H, Calcium 9.5, Total Bilirubin 0.2, AST 40 H, ALT 30, Alkaline Phosphatase 93, Troponin I < 0.01, Total Protein 7.5, Albumin 4.1, Globulin 3.4 H, Albumin/Globulin Ratio 1.2 12/05/19 14:55: NT-Pro-B Natriuret Pep 162 12/05/19 15:15: Urine Color Yellow, Urine Appearance Clear, Urine pH 6.0, Ur Specific [place] >= 1.030, Urine Protein Trace, Urine Glucose (UA) Negative, Urine Ketones Negative, Urine Blood Negative, Urine Nitrate Positive, Urine Bilirubin Negative, Urine Urobilinogen 0.2, Ur Leukocyte Esterase Trace, Urine RBC 5-10, Urine WBC 10-20, Ur Squamous Epith Cells Occasional, Urine Bacteria 4+ 12/05/19 15:30: Specimen Source R radial, O2 % Nrb, ABG pH 7.31 L, ABG pCO2 46.6 H, ABG pO2 95.3, ABG HCO3 22.7, ABG Total CO2 24.1, ABG O2 Saturation 97, ABG Base Excess -3.7 L, Gonzalez Test Acceptable 12/05/19 15:42: Influenza Type A Ag Negative, Influenza Type B Ag Negative 12/05/19 15:42: Group A Strep Rapid Negative 12/05/19 16:33: PT 12.5 H, INR 1.21 H, APTT 41.8 H 12/05/19 19:20: Troponin I < 0.01 12/05/19 21:49: Troponin I < 0.01 12/06/19 05:20: WBC 12.6 H D, RBC 3.57 L, Hgb 11.0 L D, Hct 33.1 L, MCV 92.8, MCH 30.9, MCHC 33.3, RDW 13.5, Plt Count 275, MPV 7.9, Neut % (Auto) 82.2 H, Lymph % (Auto) 11.6, [place] % (Auto) 5.2, Eos % (Auto) 0.8, Baso % (Auto) 0.2, Neut # (Auto) 10.4 H, Lymph # (Auto) 1.5, [place] # (Auto) 0.7, Eos # (Auto) 0.1, Baso # (Auto) 0.0 12/06/19 05:20: Sodium 137, Potassium 3.6, Chloride 104, Carbon Dioxide 29, Anion Gap 7.6, BUN 12, Creatinine 0.50 L, Estimated Creat Clear 42, Estimated GFR 118, Est GFR ( Amer) 143, Glucose 101 H D, Calcium 8.8 I & O for Last 24 hours: Intake & Output 12/03/19 12/04/19 12/05/19 12/06/19 23:59 23:59 23:59 23:59 Intake Total 834 / 834 Output Total 150 / 150 Balance 684 / 684 Weight 61.8 kg Microbiology Reports for the Last 24 Hours: Microbiology 12/05/19 15:40 Sputum - Expectorated Sputum Gram Stain - Final 12/05/19 15:40 Sputum - Expectorated Sputum Sputum Culture - Preliminary Gram Negative Rods 12/05/19 15:15 Urine,Catheterized Urine Culture - Preliminary Gram Negative Rods - *Routine HEENT Exam Head: Present: normocephalic Eye: Present: EOMI, PERRL ENT: Present: mucous membranes moist - *Routine Respiratory Exam Present: rhonchi. Absent: wheezes Comments: good air movement bilaterally - *Routine Cardiovascular Exam Present: RRR - *Routine Abdominal Exam Present: soft, normoact
--- NOTE | 2019-12-06 12:11 | PC.NURSE ---
md gutierrezed tylenol 650mg po q6hprn stated if shelter required 2 negative results to order second covid-19 test for today. after speaking with havekimber they stated they needed 2 negative results before patient could return. so second covid-19 test obtained per lab. md gutierrezed patient to come off of telemetry.
--- NOTE | 2019-12-06 12:25 | HMH.SLDYSPHA ---
Speech & Language Evaluation Speech/Language Dysphagia Evaluation Start: 12/06/19 11:56 Freq: ONCE Status: Active Protocol: Document 12/06/19 11:57 ARLENE (Rec: 12/06/19 12:24 ARLENE [id number]) Dysphagia Assess/Goals/Plan Assessment Date of Evaluation: 12/06/19 Evaluation Type Initial Certification Assessment/Problems Dysphagia Does Patient Qualify for Service No Qualify/Failure Comment Diet recommendations made. SNF diet remains appropriate. Recommendations PHYSICIAN CERTIFICATION: The specified therapy services are required, authorized, and reviewed every 30 days. Diet Recommendations Mechanical Soft Liquid Type Recommendations [place] Consistency Plan Pt/Guardian verbally ack understanding Yes: Dr and RN notified of dx/prognosis/goals G -code Required No Speech & Language HPI Language Primary Language Vietnamese General Information General Current Food Consistancy Dysphagia Mechanical Soft, Ground Meats,[place] Liquids Oxygen Status Room Air Patient Orientation Person,Place Ability to Follow Directions Fair Communication Ability No Impairment Dysphagia:Food Presentation Evaluation Food Type Pureed,Mechanical Soft,Liquid, Pudding Normal/Thin Liquid Response Coughing after swallow Dysphagia Evaluation Summary Ms. Hayes, an 84 year old female, has a past medical history significant for Alzheimer's dementia, hypertension, hyperlipidemia, NE, and hypothyroidism. She is a resident of [facility]. Contacted SNF to speak with Ms. Jasmine's nurse regarding diet. She is on mechanical soft diet with nectar thick liquids. She is allowed thin water when she is not eating. She was unpleasantly confused. She required multiple cues to continue with evaluation. She was given the following consistencies: thins via spoon , nectar via spoon and open cup, pudding, pureed, and mechanical soft. Ms. Hayes did exhibit coughing with thin liquids. At this time, it is recommended t
--- NOTE | 2019-12-06 13:39 | HMH.PHAINT ---
HOME MEDICATIONS RECONCILED FROM OCT. DR FRANK HAS RESTARTED THE ONLY HOME MEDS HE WANTS TO.
--- NOTE | 2019-12-06 17:18 | PC.NURSE ---
2 SPOON FULLS OF PROTEIN SHAKE, 1 SPOON OF MASHED POTATOES, 1 SPOON OF TURKEY&GRAVY
--- NOTE | 2019-12-06 18:14 | PC.NURSE ---
patient has been confused this shift which appears more at baseline. tremors are noted and requires assistance with feeding. did not eat much this shift. did tolerate nectar thick liquids fine. has remained on room air. batres continues to drain yellow urine. has not had a large amount of output. q2 turns and oral care done. some nausea patient stated but didn't last long. vitals stable will continue to monitor.
[2019-12-07] VITALS (7 sets, daily range): BP systolic 126–194; BP diastolic 40–87; PULSE 82–98; RESP 17–20; TEMP 36.6–37.4; O2SAT 90–97; BMI 22.0; BMI 21.9
--- NOTE | 2019-12-07 00:18 | PC.NURSE ---
Pt's O2 sat dropped to 89% on room air, pulmonary toilet completed without and changes. Pt placed on 1L per NC of O2, within 5 min sat increased up to 92%. Will continue to monitor pt condition
--- NOTE | 2019-12-07 03:35 | PC.NURSE ---
Pt weaned back to room air d/t sat 97% on 1L per NC. Pt slept for several hours and awoke very thirsty. Pt drank almost 1 container of nectar thick water by spoon and tolerated well. Pt alert and pleasantly confused, asking numerous times who are you and where am I . Pt turned and oral care provided at this time.
--- NOTE | 2019-12-07 07:50 | HMH.ACPN2 ---
Internal Medicine - PN: Subj *Date: 12/07/19 *Time: 10:19 Interval history: Patient has done well overnight, is more agitated and taking occasional mean tone with staff. This morning on exam she is on room air satting low to mid 90s, no O2 needed for >24hrs. Vitals remained stable. tolerating modified diet, see speech recs fo rfull description. Denies N/V/D, CP, SOA, c/o feeling cold in her feet. Continuing isolation until COVID-19 result returns Exam Vital signs and Labs for Last 24 Hours: Temp Pulse Resp BP Pulse Ox 98.5 F 87 18 172/87 H 93 L 12/07/19 03:39 12/07/19 03:39 12/07/19 03:39 12/07/19 03:39 12/07/19 06:59 I & O for Last 24 hours: Intake & Output 12/04/19 12/05/19 12/06/19 12/07/19 23:59 23:59 23:59 23:59 Intake Total 2121 / 2271 1601 / 1601 Output Total 350 / 350 575 / 575 Balance 1771 / 1921 1026 / 1026 Weight 61.8 kg 62.256 kg Microbiology Reports for the Last 24 Hours: Microbiology 12/05/19 15:40 Sputum - Expectorated Sputum Gram Stain - Final 12/05/19 15:40 Sputum - Expectorated Sputum Sputum Culture - Preliminary Gram Negative Rods Gram Negative Rods#2 12/05/19 15:42 Throat Group A Streptococcus Screen (KAYLYNN) - Final Negative for Group A Streptococcus. 12/05/19 15:15 Urine,Catheterized Urine Culture - Final Escherichia coli Narrative: NAD on RA on exam - *Routine HEENT Exam Head: Present: normocephalic Eye: Present: EOMI, PERRL ENT: Present: mucous membranes moist - *Routine Respiratory Exam Present: rhonchi. Absent: wheezes Comments: good air movement bilaterally - *Routine Cardiovascular Exam Present: RRR - *Routine Abdominal Exam Present: soft, normoactive bowel sounds. Absent: tenderness - *Routine Extremities Exam Present: edema (trace). Absent: cyanosis, clubbing Comments: contracted in LE bilaterally - *Routine Neurological Exam Present: alert, tremors; oriented to person, confused about place and time, keeps asking to go back to her [facility] appears somewhat agitated Assessment and Plan (1) Pneumonia of both lower lobes Current visit: Yes Status: Acute Qualifiers: Pneumonia type: aspiration pneumonia Category: Medical Code(s): J18.9 - Pneumonia, unspecified organism (2) Acute respiratory failure with hypoxemia Current visit: Yes Status: Resolved Category: Medical Code(s): J96.01 - Acute respiratory failure with hypoxia (3) Sepsis Current visit: No Status: Resolved Qualifiers: Sepsis type: sepsis due to unspecified organism Qualified Code(s): A41.9 - Sepsis, unspecified organism Category: Medical Code(s): A41.9 - Sepsis, unspecified organism (4) Alzheimer's dementia Current visit: No Status: Acute Category: Medical Code(s): G30.9 - Alzheimer's disease, unspecified; F02.80 - Dementia in other diseases classified elsewhere without behavioral disturbance (5) Fever Current visit: No Status: Acute Qualifiers: Fever type: unspecified Qualified Code(s): R50.9 - Fever, unspecified Category: Medical Code(s): R50.9 - Fever, unspecified (6) Hypertension Current visit: Yes Status: Chronic Category: Medical Code(s): I10 - Essential (primary) hypertension (7) Hyperlipidemia Current visit: Yes Status: Chronic Category: Medical Code(s): E78.5 - Hyperlipidemia, unspecified (8) Hypothyroidism Current visit: Yes Status: Chronic Category: Medical Code(s): E03.9 - Hypothyroidism, unspecified - Assessment and plan all Dx Assessment and Plan for all problems:: 84 yo F with multiple co-morbidities including dementia, Hx of MO and chronic debility. Admitted for AHRF 2/2 Aspiration PNA vs viral pneumonia. Clinically stable with stable respiratory status on RA. Afebrile and hemodynamically stab
--- NOTE | 2019-12-07 08:47 | PC.NURSE ---
md stated to stop patient fluids and remove batres. if patient has not urinated in 12 hours requested bladder scanner to be done. if bladder scanner shows >600 then to in and out cath. if patient bladder scanner was needed and it showed no urine or if patient was to be hypotensive less than 100/70 twice 15 mins apart then md ordered to give a 1 l bolus of LR at 250ml/hr
--- NOTE | 2019-12-07 18:12 | PC.NURSE ---
patient has done well this shift. she has been confused with repetitive questions and occasional cursing at staff. patient appears to be at baseline. slightly loose cough with minimal sputum production. has actually rested well at some points. noted earlier in shift have higher bp but after valium, tylenol and some rest noted a decrease in bp. refusing to eat for staff, but has drank some this shift. still no urine output since removal of batres. vitals stable. will continue to monitor.
--- NOTE | 2019-12-07 20:35 | PC.NURSE ---
PT HAD LARGE AMOUNT OF UNMEASURED URINARY OUTPUT PER BRIEF @ 2000.
[2019-12-08] VITALS (10 sets, daily range): BP systolic 110–176; BP diastolic 40–65; PULSE 80–100; RESP 18; TEMP 37–37.5; O2SAT 91–96; BMI 22.3
--- NOTE | 2019-12-08 05:35 | PC.NURSE ---
A&OX3 AT TIMES. PT ABLE TO STATE NAME, BIRTHDAY, AND PLACE WHEN ASKED, UNABLE TO STATE YEAR. PT CONFUSION COMES AND GOES T/O SHIFT. PT SLIGHTLY AGGITATED AT TIMES. PT HAS TOLERATED RA WELL T/O SHIFT. PT REMAINS IN BED T/O SHIFT, BEING TURNED TOLERATED. PT INCONTINENT, BRIEF IN PLACE. PT HAD 1 LARGE BM THIS SHIFT. PT HAS HAD NO C/O NA/VO, PAIN, OR SOA THIS SHIFT. PT HAS RESTED WELL T/O NIGHT. PT HAS NOT BECOME HYPOTENSION THIS SHIFT. NO OTHER COMPLAINTS THUS FAR, VSS WILL CONTINUE TO MONITOR.
--- NOTE | 2019-12-08 05:38 | PC.NURSE ---
PT HAS HAD PRODUCTIVE INTERMITTENT COUGH T/O SHIFT, PRODUCING LIGHT YELLOW MUCOUS. PT HAS ALSO REFUSED TO EAT DURING THIS SHIFT BUT HAS DRANK 1 CONTAINER OF THICKENED WATER.
[2019-12-08 05:41] LABS: Basophils % 0.3 % (0.1-2.0); Eosinophils # 0.1 K/mm3 (0.0-0.4); Eosinophils % 0.8 % (0.1-12.0); Hemoglobin 11.7 g/dL (12.2-16.2); Lymphocytes # 1.1 K/mm3 (0.7-4.5); Lymphocytes % 11.3 % (10-50); Mean Corpuscular HGB Conc 34.3 g/dL (31.8-35.4); Mean Corpuscular Hemoglobin 31.3 pg (27.0-31.2); Mean Corpuscular Volume 91.1 fl (81-99); Mean Platelet Volume 7.3 fl (7.4-10.4); Monocytes # 0.5 K/mm3 (0.1-1.0); Monocytes % 4.9 % (1.7-9.3); Neutrophils # 8.2 K/mm3 (1.8-7.8); Neutrophils % 82.7 % (37.0-80.0); Platelet Count 298 K/mm3 (142-424); Red Blood Count 3.74 M/mm3 (4.20-5.40); Red Cell Distribution Width 13.3 % (11.5-17.5); White Blood Count 9.9 K/mm3 (4.8-10.8)
[2019-12-08 05:43] LABS: Chloride 102 mmol/L (98-107)
[2019-12-08 05:44] LABS: Potassium 3.4 mmoL/L (3.5-5.1); Sodium 138 mmol/L (136-145)
[2019-12-08 05:47] LABS: Anion Gap 17.4 mEq/L (5-15); Blood Urea Nitrogen 3 mg/dl (7-17); Calcium 8.6 mg/dl (8.4-10.2); Carbon Dioxide 22 mmol/L (22.0-30.0); Creatinine Clearance Estimated 42 mL/min (50-200); Estimated Glomerular Filt Rate 118 ml/min (>60); GFR (African American) 143 ML/MIN (>60); Glucose 76 mg/dl (74-100)
--- NOTE | 2019-12-08 07:37 | HMH.ACPN2 ---
Internal Medicine - PN: Subj *Date: 12/08/19 *Time: 08:30 Interval history: Patient has continued to do well. Appears more comfortable this morning, no agitation on interview. Valium was resumed yesterday at lower dose. Tolerating well without any somnolence or over sedation. This morning on exam she is on room air satting low to mid 90s, no O2 needed for >48hrs. Vitals remained stable blood pressure is a little higher. tolerating modified diet, see speech recs for full description. Denies N/V/D, CP, SOA. Continuing isolation until COVID-19 result returns. Exam Vital signs and Labs for Last 24 Hours: Temp Pulse Resp BP Pulse Ox 98.8 F 100 H 18 176/62 H 92 L 12/08/19 07:33 12/08/19 07:33 12/08/19 07:33 12/08/19 07:33 12/08/19 07:33 Laboratory Results - last 24 hr 12/08/19 05:20: WBC 9.9, RBC 3.74 L, Hgb 11.7 L, Hct 34.0 L, MCV 91.1, MCH 31.3 H, MCHC 34.3, RDW 13.3, Plt Count 298, MPV 7.3 L, Neut % (Auto) 82.7 H, Lymph % (Auto) 11.3, [place] % (Auto) 4.9, Eos % (Auto) 0.8, Baso % (Auto) 0.3, Neut # (Auto) 8.2 H, Lymph # (Auto) 1.1, [place] # (Auto) 0.5, Eos # (Auto) 0.1, Baso # (Auto) 0.0 12/08/19 05:20: Sodium 138, Potassium 3.4 L, Chloride 102, Carbon Dioxide 22 D, Anion Gap 17.4 H, BUN 3 L D, Creatinine 0.50 L, Estimated Creat Clear 42, Estimated GFR 118, Est GFR ( Amer) 143, Glucose 76, Calcium 8.6 I & O for Last 24 hours: Intake & Output 12/05/19 12/06/19 12/07/19 12/08/19 23:59 23:59 23:59 23:59 Intake Total 2121 / 2271 2282 / 2332 340 / 340 Output Total 350 / 350 775 / 775 Balance 1771 / 1921 1507 / 1557 340 / 340 Weight 61.8 kg 62 kg 63.078 kg Microbiology Reports for the Last 24 Hours: Microbiology 12/05/19 15:40 Sputum - Expectorated Sputum Gram Stain - Final 12/05/19 15:40 Sputum - Expectorated Sputum Sputum Culture - Preliminary Gram Negative Rods Proteus mirabilis 12/05/19 15:42 Throat Group A Streptococcus Screen (KAYLYNN) - Final Negative for Group A Streptococcus. 12/05/19 15:15 Urine,Catheterized Urine Culture - Final Escherichia coli Narrative: NAD on RA on exam Routine HEENT Exam Head: Present: normocephalic Eye: Present: EOMI, PERRL ENT: Present: mucous membranes moist Routine Respiratory Exam Present: rhonchi. Absent: wheezes; good air movement bilaterally Routine Cardiovascular Exam Present: RRR Routine Abdominal Exam Present: soft, normoactive bowel sounds. Absent: tenderness Routine Extremities Exam Present: edema (trace), loss of muscle mass in BLE, contracted in BLE. Absent: cyanosis, clubbing Routine Neurological Exam Present: alert, tremors; oriented to person, confused about place and time, keeps asking to go back to her room (th[facility] appears somewhat agitated Assessment and Plan (1) Pneumonia of both lower lobes Current visit: Yes Status: Acute Qualifiers: Pneumonia type: aspiration pneumonia Category: Medical Code(s): J18.9 - Pneumonia, unspecified organism (2) Acute respiratory failure with hypoxemia Current visit: Yes Status: Resolved Category: Medical Code(s): J96.01 - Acute respiratory failure with hypoxia (3) Sepsis Current visit: No Status: Resolved Qualifiers: Sepsis type: sepsis due to unspecified organism Qualified Code(s): A41.9 - Sepsis, unspecified organism Category: Medical Code(s): A41.9 - Sepsis, unspecified organism (4) Alzheimer's dementia Current visit: No Status: Acute Category: Medical Code(s): G30.9 - Alzheimer's disease, unspecified; F02.80 - Dementia in other diseases classified elsewhere without behavioral disturbance (5) Fever Current visit: No Status: Acute Qualifiers: Fever type: unspecified Qualified Code(s): R50.9 - Fever, unspecified Category: Medical Code(s): R50.9 - Fever, unspecified
--- NOTE | 2019-12-08 07:56 | HMH.ACPN ---
Internal Medicine - PN: Subj *Date: 12/08/19 *Time: 07:56 Exam Vital signs and Labs for Last 24 Hours: Temp Pulse Resp BP Pulse Ox 98.8 F 100 H 18 176/62 H 92 L 12/08/19 07:33 12/08/19 07:33 12/08/19 07:33 12/08/19 07:33 12/08/19 07:33 Laboratory Results - last 24 hr 12/08/19 05:20: WBC 9.9, RBC 3.74 L, Hgb 11.7 L, Hct 34.0 L, MCV 91.1, MCH 31.3 H, MCHC 34.3, RDW 13.3, Plt Count 298, MPV 7.3 L, Neut % (Auto) 82.7 H, Lymph % (Auto) 11.3, [place] % (Auto) 4.9, Eos % (Auto) 0.8, Baso % (Auto) 0.3, Neut # (Auto) 8.2 H, Lymph # (Auto) 1.1, [place] # (Auto) 0.5, Eos # (Auto) 0.1, Baso # (Auto) 0.0 12/08/19 05:20: Sodium 138, Potassium 3.4 L, Chloride 102, Carbon Dioxide 22 D, Anion Gap 17.4 H, BUN 3 L D, Creatinine 0.50 L, Estimated Creat Clear 42, Estimated GFR 118, Est GFR ( Amer) 143, Glucose 76, Calcium 8.6 I & O for Last 24 hours: Intake & Output 12/05/19 12/06/19 12/07/19 12/08/19 23:59 23:59 23:59 23:59 Intake Total 2121 / 2271 2282 / 2332 340 / 340 Output Total 350 / 350 775 / 775 Balance 1771 / 1921 1507 / 1557 340 / 340 Weight 61.8 kg 62 kg 63.078 kg Microbiology Reports for the Last 24 Hours: Microbiology 12/05/19 15:40 Sputum - Expectorated Sputum Gram Stain - Final 12/05/19 15:40 Sputum - Expectorated Sputum Sputum Culture - Preliminary Gram Negative Rods Proteus mirabilis 12/05/19 15:42 Throat Group A Streptococcus Screen (KAYLYNN) - Final Negative for Group A Streptococcus. 12/05/19 15:15 Urine,Catheterized Urine Culture - Final Escherichia coli Assessment and Plan (1) Pneumonia of both lower lobes Current visit: Yes Status: Acute Qualifiers: Pneumonia type: aspiration pneumonia Category: Medical Code(s): J18.9 - Pneumonia, unspecified organism (2) Acute respiratory failure with hypoxemia Current visit: Yes Status: Resolved Category: Medical Code(s): J96.01 - Acute respiratory failure with hypoxia (3) Sepsis Current visit: No Status: Resolved Qualifiers: Sepsis type: sepsis due to unspecified organism Qualified Code(s): A41.9 - Sepsis, unspecified organism Category: Medical Code(s): A41.9 - Sepsis, unspecified organism (4) Alzheimer's dementia Current visit: No Status: Acute Category: Medical Code(s): G30.9 - Alzheimer's disease, unspecified; F02.80 - Dementia in other diseases classified elsewhere without behavioral disturbance (5) Fever Current visit: No Status: Acute Qualifiers: Fever type: unspecified Qualified Code(s): R50.9 - Fever, unspecified Category: Medical Code(s): R50.9 - Fever, unspecified (6) Hypertension Current visit: Yes Status: Chronic Category: Medical Code(s): I10 - Essential (primary) hypertension (7) Hyperlipidemia Current visit: Yes Status: Chronic Category: Medical Code(s): E78.5 - Hyperlipidemia, unspecified (8) Hypothyroidism Current visit: Yes Status: Chronic Category: Medical Code(s): E03.9 - Hypothyroidism, unspecified The patient's infection will respond to the chosen ABx?: Yes Is the patient receiving the right drug, dose, and route?: Yes Could a more targeted ABx be ordered?: No (SPUTUM AND URINE CULTURE SENSITIVE TO ROCEPHIN.)
--- NOTE | 2019-12-08 10:59 | SW/DCPLANNER ---
This patient currently resides at [facility]. I have spoke with Taylor from [facility] and she has stated that patient is under [facility] and they will accept this patient back once stable for discharge.
--- NOTE | 2019-12-08 16:29 | PC.NURSE ---
AT START OF THIS RN SHIFT PATIENT A&O X3, UPON SECOND ASSESSMENT PATIENT A&O X1. PATIENT REFUSED TO EAT BREAKFAST AND LUNCH WITH ENCOURAGEMENT FROM THIS RN AND KLAUS GRAYSON. PATIENT HAS HAD LITTLE INTAKE THUS FAR. PATIENT HAS HAD 1 UNMEASURED VOID AND 1 BOWEL MOVEMENT. THIS RN WILL CONTINUE TO ENCOURAGE PATIENT TO DRINK AND EAT. PATIENT STATES THAT SHE LOVES DRINKING WATER. THIS RN PROVIDES PATIENT WITH WATER AND AFTER 2 SMALL SIPS PATIENT STATES SHE IS DONE AND DOES NOT WANT ANYMORE. NO OTHER CONCERNS AT THIS TIME.
--- NOTE | 2019-12-08 17:16 | DIET.NUTRFU ---
Pt continues to refuse nourishment dt confusion despite encouragement from staff. Weight is stable, BG slightly elevated, fluid status is adequate. Continuing to send ensure to supplement diet.
[2019-12-09] VITALS: BP 158/61; PULSE 73; RESP 16; TEMP 36.8; O2SAT 93
--- NOTE | 2019-12-09 02:31 | PC.NURSE ---
Addendum entered by Delicia Sands RN 12/09/19 07:26: TREMORS NOTED THIS SHIFT. Addendum entered by Delicia Sands RN 12/09/19 02:41: REMAINED IN NEGATIVE AIR PRESSURE ROOM & AIRBORNE/CONTACT W/ EYE PROTECTION ISOLATION PRECAUTIONS THIS SHIFT. Original Note: ALERT TO SELF BUT UNABLE TO VERIFY OTHER PT IDENTIFIERS. PT IS CONFUSED. FOR EXAMPLE: PT HAS ASKED STAFF WHERE AM I? MULTIPLE TIMES WITH IN ONE INTERACTION WITH STAFF. REORIENTED PT NEEDED. HX OF DEMENTIA NOTED. [employer]ING AND FINISHING WORKER EQUAL BILAT. PULSES +2, CAP REFILL <3 SEC. LUNGS NOTED WITH SCATTERED RHONCHI. RA TOLERATED WELL. ABDOMEN FLAT, ACTIVE BOWEL SOUNDS, SOFT AND NONTENDER PER PALPATION. INCONTINENCE NOTED, PT'S BASELINE. TOLERATED NECTAR THICKENED LIQUID AND CRUSHED MEDS IN PUDDING WELL. BLE NOTED CONTRACTED. PILLOW PLACED BETWEEN BLE. TURNED AND REPOSITIONED THIS SHIFT Q2H. PT HAS REMAINED IN ISOLATION FOR PENDING COVID 19 TEST RESULTS. STAFF HAS DONNED APPROPRIATE PPE T/O SHIFT. VSS. WILL CONTINUE TO MONITOR.
[2019-12-09 04:00] VITALS: BP 136/81; PULSE 82; RESP 18; TEMP 36.2; O2SAT 93
[2019-12-09 05:24] VITALS: BMI 21.9
[2019-12-09 08:00] VITALS: BP 167/71; PULSE 91; RESP 20; TEMP 36.8; O2SAT 93; O2SAT 96
--- NOTE | 2019-12-09 08:58 | HMH.ACPN2 ---
Internal Medicine - PN: Subj *Date: 12/09/19 *Time: 08:58 Exam Vital signs and Labs for Last 24 Hours: Temp Pulse Resp BP Pulse Ox 98.2 F 91 H 20 167/71 H 93 L 12/09/19 08:00 12/09/19 08:00 12/09/19 08:00 12/09/19 08:00 12/09/19 08:00 I & O for Last 24 hours: Intake & Output 12/06/19 12/07/19 12/08/19 12/09/19 23:59 23:59 23:59 23:59 Intake Total 2121 / 2271 2282 / 2332 460 / 460 70 / 70 Output Total 350 / 350 775 / 775 Balance 1771 / 1921 1507 / 1557 460 / 460 70 / 70 Weight 62 kg 63.078 kg 61.83 kg Microbiology Reports for the Last 24 Hours: Microbiology 12/05/19 15:40 Sputum - Expectorated Sputum Gram Stain - Final 12/05/19 15:40 Sputum - Expectorated Sputum Sputum Culture - Preliminary Gram Negative Rods Proteus mirabilis Assessment and Plan (1) Pneumonia of both lower lobes Current visit: Yes Status: Acute Qualifiers: Pneumonia type: aspiration pneumonia Category: Medical Code(s): J18.9 - Pneumonia, unspecified organism (2) Acute respiratory failure with hypoxemia Current visit: Yes Status: Resolved Category: Medical Code(s): J96.01 - Acute respiratory failure with hypoxia (3) Sepsis Current visit: No Status: Resolved Qualifiers: Sepsis type: sepsis due to unspecified organism Qualified Code(s): A41.9 - Sepsis, unspecified organism Category: Medical Code(s): A41.9 - Sepsis, unspecified organism (4) Alzheimer's dementia Current visit: No Status: Acute Category: Medical Code(s): G30.9 - Alzheimer's disease, unspecified; F02.80 - Dementia in other diseases classified elsewhere without behavioral disturbance (5) Fever Current visit: No Status: Acute Qualifiers: Fever type: unspecified Qualified Code(s): R50.9 - Fever, unspecified Category: Medical Code(s): R50.9 - Fever, unspecified (6) Hypertension Current visit: Yes Status: Chronic Category: Medical Code(s): I10 - Essential (primary) hypertension (7) Hyperlipidemia Current visit: Yes Status: Chronic Category: Medical Code(s): E78.5 - Hyperlipidemia, unspecified (8) Hypothyroidism Current visit: Yes Status: Chronic Category: Medical Code(s): E03.9 - Hypothyroidism, unspecified
[2019-12-09 11:32] VITALS: BP 155/62; PULSE 90; RESP 20; TEMP 37.1; O2SAT 92
[2019-12-09 12:21] LABS: Covid-19 Nasal PCR Sendout Lex NOT DETECTED
--- NOTE | 2019-12-09 13:48 | HMH.DCSUM ---
General - General Admission date:: 12/05/19 Discharge date: 12/09/19 HPI HPI: Ms. Hayes is an 84-year-old female resident at [facility] who presented to the ER due to acute respiratory distress and fever. Of note she has a past medical history significant for Alzheimer's dementia, hypertension, hyperlipidemia, CA, and hypothyroidism. She was brought to the ER via EMS due to concern at the senior living that she had worsening respiratory distress and possible aspiration event. On arrival to the senior living by EMS, patient noted to be hypoxemic. She was placed on nonrebreather and brought to the ED for further management. Per ER documentation, she was noted to have an elevated white count, fever of 100.7, heart rate greater than 90, and respiratory acidosis on blood gas. CT of her chest noted bilateral lower lobe opacifications concerning for viral pneumonia versus aspiration pneumonia. Patient met septic criteria. Admitted to medicine for further management of her pneumonia and sepsis. Of note she is a DNR/DNI. Given her presentation with bilateral opacifications in her lungs, respiratory distress, fever, resident long-term nursing facility, Covid-19 test was performed. She was admitted under respiratory precautions. Family was contacted after I assessed the patient. Extensive discussion of patient's condition with patient's POA, her daughter, and code status evaluation. Pt arrived to the ER with advanced directives (stating DNR status) and EMS DNR paper work. Family however wanted to initially make patient full code. Discussed code status having no bearing on current treatment and aggressive approach to curing current illness. Daughter decided to have further discussion with Brother (Pts son) about code status. See Nurse note from YINA Mak about final decision of DNR status. They are however, okay with respiratory support if needed such as BiPAP or high flow nasal cannula. Unable to obtain history or review of systems from patient due to illness and dementia. Hospital Course Hospital Course: 84-year-old female who had a hypoxic event at [facility] leading to her admission to the hospital. Had significant improvement in her respiratory status within the first 24 hours with de-escalation of her oxygen requirement. Given her presentation, chest imaging findings, and respiratory distress, she was diagnosed with concern for aspiration pneumonia but also tested for COVID-19 on admission as she is high risk and lives in a setting with multiple vulnerable patients. Hospitalization prolonged due to awaiting COVID-19 testing. Results returned to today 12/09/2019 negative for COVID-19. Was maintained on antibiotics for aspiration pneumonia and finding of a gram negative fredy (E. coli) UTI on admission. Speech therapy assessed patient during admission, adjustments were made to her diet. Other home medications were continued however significant changes are as follows: Valium decreased to 2.5 mg 3 times a day Atorvastatin stopped due to patient's advanced age and debility, its benefit is nil. Remained hemodynamically stable during admission. Stable for discharge back to [facility]. Plan to complete 2 more days of oral antibiotics, Omnicef 300 mg twice daily for 2 days. Denies shortness of breath, nausea, vomiting. Has baseline tremor. Pleasantly confused on interview today. Excited about getting back to her room per her report. Objective Vital signs: Temp Pulse Resp BP Pulse Ox 98.8 F 90 20 155/62 H 92 L 12/09/19 11:32 12/09/19 11:32 12/09/19 11:32 12/09/19 11:32 12/09/19 11:32 Narrative: NAD on RA on exam Routine HEENT Exam Head: Present: normocephalic Eye: Present: EOMI, PERRL ENT: Present: mucous membranes moist Routine Respiratory Exam Present: rhonchi. Absent: wheezes; good air movement bilaterally Routine Cardiovascular Exam Present: RRR
--- NOTE | 2019-12-09 15:51 | SW/DCPLANNER ---
This patient will discharge back to [facility] today I[facility] level of care. I have faxed all patient information including NEGATIVE COVID-19 results to Taylor at [facility]. Taylor has stated they can accept this patient back today.
[2019-12-09 16:00] VITALS: BP 139/63; PULSE 89; RESP 20; TEMP 37.4; O2SAT 93
[2019-12-10 17:30] LABS: Covid-19 Nasal PCR Sendout Lex NOT DETECTED
== END 2019-12-09 17:00 | DRG 177 ==
LOC: ER 15:51 → ICU 16:53 → 2ND 12-09 08:36 → ICU 12-09 08:41
PROVIDERS: Internal Medicine Adolescent Medicine; Admitting Provider Family Medicine; Emergency Provider Emergency Medicine; PCP Internal Medicine Adolescent Medicine; Visit Provider Internal Medicine Adolescent Medicine
DX: J69.0 Pneumonitis due to inhalation of food and vomit (principal); J96.01 Acute respiratory failure with hypoxia; I10 Essential (primary) hypertension; E03.9 Hypothyroidism, unspecified; I25.2 Old myocardial infarction; Z79.899 Other long term (current) drug therapy; Z88.1 Allergy status to other antibiotic agents; G30.9 Alzheimer's disease, unspecified; F02.80 Dementia in other diseases classified elsewhere, unspecified severity, without behavioral disturbance, psychotic disturbance, mood disturbance, and anxiety
CPT/HCPCS: 36415; 71045; 71275; 80048; 80053; 81001; 82803; 83880; 84484; 85007; 85025; 85610; 85730; 87070; 87077; 87086; 87088; 87186; 87205; 87275; 87276; 87430; 92610; 93005; 94640; 94760; 94761; 99285; Q9967